=== PATIENT | male | born 1970 | race Caucasian/White ===

== ENCOUNTER 2025-01-17 22:27 | Emergency (ER) | payer BC, SELFPAY ==
[2025-01-17 22:41] VITALS: BP 129/91; PULSE 66; TEMP 36.8; O2SAT 100; BMI 28.1
--- NOTE | 2025-01-17 22:46 | PC.NURSE ---
patient complains of left thumb cut from a aging box hand, onset tonight around 7:00 pm. this patient wound clean with 0.9 ns and cover with 4x4, at this time no visible active bleeding at this time
--- NOTE | 2025-01-17 23:15 | ED_ITS ---
HPI - Wound/Laceration General Chief Complaint: Wound/Laceration Stated Complaint: laceration Time Seen by Provider: 01/17/25 22:47 Source: patient Mode of arrival: walk-in Limitations: no limitations History of Present Illness HPI narrative: This 54-year-old male who is right-hand dominant presents for evaluation of a 1.5 cm laceration to the lateral aspect of the left thumb. Around 7 PM he was cutting drywall with a box knife and the knife slipped causing him to sustain this laceration. There is no numbness or tingling. He thinks his last tetanus shot was around 2 years ago. No additional injury or complaint. The patient's states that since 7 PM they have not been able to get the bleeding to stop. Related Data Home Medications ?Medication ?Instructions ?Recorded ?Confirmed sertraline 50 mg tablet mg 01/17/25 Allergies Allergy/AdvReac Type Severity Reaction Status Date / Time No Known Drug Allergies Allergy Verified 01/17/25 22:40 Review of Systems ROS Status of ROS 10 or more systems reviewed and unremark able except as noted in history and below PFSH PFSH Social History Little interest or pleasure in doing things: not at all Feeling down, depressed, or hopeless: not at all Exam Narrative Exam Narrative: Vital signs and Nursing Notes reviewed: Patient is afebrile with a normal pulse, normal blood pressure, he is not hypoxic with pulse ox of 100% on room air General: Awake, alert, oriented, no acute distress, lying comfortably on the stretcher HEENT: Normocephalic atraumatic, mucous membranes are moist and pink, eyes are clear Chest: Lungs are clear to auscultation with good air entry, there is no wheezing rhonchi or rales appreciated no accessory muscle use, patient is speaking in complete sentences-no chest wall tenderness to palpation CVS: Regular rate and rhythm S1-S2, no murmurs rubs or gallops, pulses are brisk and equal bilaterally Extremities: 1.5 cm laceration to the lateral aspect of the left thumb between the DIP and end of the thumb. The laceration cuts thru the lateral aspect of the fingernail superficially without any notable nailbed laceration. Pt is able to flex and extend at the MCP, PIP and DIP joint. Skin: Normal in appearance without rash,pallor, petechiae or purpura Neuro: No focal deficits Constitutional Vital Signs, click to edit/add: Last Vital Signs Temp 98.3 F 01/17/25 22:41 Pulse 66 01/17/25 22:41 Resp 18 01/17/25 22:41 BP 129/91 01/17/25 22:41 Pulse Ox 100 01/17/25 22:41 O2 Del Method Room Air 01/17/25 22:41 Course Vital Signs Vital signs: Vital Signs Temperature 98.3 F 01/17/25 22:41 Pulse Rate 66 01/17/25 22:41 Respiratory Rate 18 01/17/25 22:41 Blood Pressure 129/91 01/17/25 22:41 Pulse Oximetry 100 01/17/25 22:41 Oxygen Delivery Method Room Air 01/17/25 22:41 Temperature 98.3 F 01/17/25 22:41 Pulse Rate 66 01/17/25 22:41 Respiratory Rate 18 01/17/25 22:41 Blood Pressure 129/91 01/17/25 22:41 Pulse Oximetry 100 01/17/25 22:41 Oxygen Delivery Method Room Air 01/17/25 22:41 MDM - Wound/Laceration MDM Narrative Medical decision making narrative: This 54-year-old male who is right-hand dominant presents for evaluation of a 1.5 cm laceration to the right thumb. This does minimally involve the lateral aspect of the thumbnail the thumb nail is not avulsed or otherwise injured. He states his last tetanus was around 2 years ago and declines a tetanus tonight. He is neurovascularly intact. The hand was soaked in Hibiclens and water and 5, 3-0 Ethilon sutures were placed into the laceration. Dermabond was applied over the fingernail to keep that from catching on anything. Discharge Plan Discharge Chief Complaint: Wound/Laceration Clinical Impression: Laceration of thumb with damage to nail Patient Disposition: Home, Self-Care Time of Disposition Decision: 23:50 Condition: Good Prescriptions / Home Meds: No Action sertraline 50 mg tablet Print Language: Welsh Instructions: Care For Your Stitches (ED), Finger Laceration (ED) Referrals: FRANSICO NASSAR [Primary Care Provider] - 1 week Procedures ED Procedure Instructions Procedures Procedures: Procedure note: Left thumb laceration repair; a digital block was performed with 1% lidocaine after the hand was soaked in Hibiclens and water. When anesthesia was obtained an additional small amount of lidocaine was infiltrated into the wound edges on the left thumb. 5, 3-0 Ethilon sutures were placed into the laceration with good wound edge approximation. Dermabond was applied topically on top of the nail. Patient tolerated procedure well. Suture care was discussed with the patient and his . A bacitracin dressing was applied by the nursing staff and he was discharged home.
[2025-01-18] MEDS: LIDOCAINE HCL 1% 100 MG/10 ML MDV INJ (00:17)
[2025-01-18] MEDS: BACITRACIN 0.9 GM PACKET 1 PACKET TOPICAL (00:18)
--- NOTE | 2025-01-18 00:19 | PC.NURSE ---
i gave this patient verbal and written discharge orders, and this patient voices yes to understanding these. at time of discharge this patient vices no concern and shows no signs of distress
== END 2025-01-18 00:21 | disposition home or self-care (01) ==
PROVIDERS: Emergency Provider Emergency Medicine; PCP Family Medicine
DX: S61.111A Laceration without foreign body of right thumb with damage to nail, initial encounter (principal); W26.0XXA Contact with knife, initial encounter
CPT/HCPCS: 12001; 99284

== ENCOUNTER 2025-06-29 06:33 | Outpatient (OUT) | payer BC, SELFPAY ==
--- OUTSIDE RECORDS SUMMARY | 2025-06-29 06:35 | XMS_ITS | CCD ---
Author Organization [facility] Care Team Providers Care [employer] Technician Name Role Phone REQUEST, DR QUEVEDO LISTED Consulting Unavaila ble REQUEST, DR QUEVEDO LISTED Attending Unavaila ble MADAY, DR BATEMAN Primary Care Unavailable REQUEST, DR QUEVEDO LISTED Admitting Unavaila ble RUFINA, GREGORIO Attending Unavailable ROSS, GREGORIO Admitting Unavailable MADAY, DR BATEMAN Primary Care Unavailable RUFINA, GREGORIO Consulting Unavailable HAY, DR DILLARD Admitting Unavailable MADAY, DR BATEMAN Primary Care Unavailable WEST, DR FABIOLA Hernandes Consulting Unavailable HAY, DR DILLARD Attending Unavailable HAY, DR DILLARD Consulting Unavailable JASON HERMAN Consulting Unavailable MADAY, DR BATEMAN Primary Care Unavailable WIECEK, DR ALDO Chambers Admitting Unavailable WIECEK, DR ALDO Chambers Attending Unavailable MADAY, DR BATEMAN Primary Care Unavailable WIECEK, DR ALDO Chambers Admitting Unavailable WIECEK, DR ALDO Chambers Consulting Unavailable WIECEK, DR ALDO Chambers Attending Unavailable DIONI CHANEY Consulting Unavailable MADAY, DR BATEMAN Consulting Unavailable MADAY, DR BATEMAN Attending Unavailable MADAY, DR BATEMAN Admitting Unavailable MISC, DR MORAN Consulting Unavailable Unavailable Primary Care Provider UnavailEDWIN Nevarez Attending Unavailable Jennifer Nassar MD Unavailable Jennifer Nassar MD Primary Care Provider [phone] ALEJA NICOLE Attending Unavailable Medications Current Medications Medication Drug Class(es) Dates Sig (Normalized) Sig (Original) predniSONE 20 mg oral tablet (2 sources) Start: 05-19-2024 predniSONE 20 MG tablet 3 tabs daily x 3days; 2 tabs daily x 3days; 1 tab daily x 3days then 1/2 tablet daily x 3days 20 tablet 05/19/2024 Active Start: 05-18-2024 End: 05-18-2024 take 1 dose by mouth once 60 mg, Oral, ONCE, 1 dose, O n 05/18/24 at 0745 sertraline 50 mg oral tablet (8 sources) Serotonin Reuptake Inhibitor Start: 05-13-2025 End: 06-01-2025 take 1 tablet by mouth once daily, then take 1 tablet by mouth once daily sertraline (Zoloft) 50 MG tablet Indications: Mixed anxiety and depressive disorder Take 1 tablet (50 mg) by mouth Daily TAKE 1 TABLET BY MOUTH EVERY DAY 90 tablet 3 06/01/2025 Active Start: 08-10-2024 End: 09-12-2024 take 1 tablet by mouth once daily sertraline (Zoloft) 50 MG tablet Indications: Mixed anxiety and depressive disorder TAKE 1 TABLET BY MOUTH EVERY DAY 30 tablet 09/12/2024 Active Start: 05-04-2024 take 1 tablet by claudia th once daily Sertraline 50 MG tablet TAKE 1 TABLET BY MOUTH EVERY DAY FOR 100 DAYS 05/04/2024 Active Problems Active Problems Problem Classification Problem Date Documented Date Episodic/Chronic Allergic reactions (2 sources) Contact dermatitis due to poison moi; Translations: [Allergic contact dermatitis due to plants, except food] Onset: 05-18-2024 05-18-2024 Episodic Anxiety disorders (7 sources) Mixed anxiety and depressive disorder; Translations: [Other specified anxiety disorders] Onset: 05-01-2023 09-12-2024 Chronic Diverticulosis and diverticulitis (1 source) Diverticulitis of large intestine without perforation or abscess without bleeding; Translations: [DVTRCLI LG INT NO PERF/ABSC W/O BL] Onset: 06-09-2021 Chronic Other nutritional; endocrine; and metabolic disorders (1 source) Obesity, unspecified; Translations: [OBESITY UNSPECIFIED] Onset: 08-02-2021 Chronic Other nutritional; endocrine; and metabolic disorders (1 source) Body mass index (BMI) 30.0-30.9, adult; Translations: [BODY MASS INDEX BMI 30.0-30.9 ADULT] Onset: 08-02-2021 Chronic Other nutritional; endocrine; and metabolic disorders (4 sources) Obesity caused by energy imbalance; Translations: [Class 1 obesity due to excess calories without serious comorbidity with body mass index (BMI) of 30.0 to 30.9 in adult] Onset: 06-01-2025 06-01-2025 Chronic Other screening for suspected conditions (not mental disorders or infectious disease) (4 sources) Patient encounter status; Translations: [Encounter for screening for malignant neoplasm of colon] 06-01-2025 Episodic Residual codes; unclassified (4 sources) Family history of cardiac disorder; Translations: [Family history of ischemic heart disease and other diseases of the circulatory system] Onset: 06-01-2025 06-01-2025 Episodic Unclassified (3 sources) CONTACT W/AND (SUSP) EXPOS COVID-19; Translations: [CONTACT W/AND (SUSP) EXPOS COVID-19] Onset: 03-09-2021 Past or Other Problems Problem Classification Problem Date Documented Da te Episodic/Chronic Abdominal hernia (5 sources) Incisional hernia without obstruction or gangrene; Translations: [INCI HERNIA W/O OBSTRUCTION/GANGREN ] Onset: 07-25-2021 Episodic Abdominal pain (3 sources) Unspecified abdominal pain; Translations: [UNSPECIFIED ABDOMINAL PAIN] Onset: 06-07-2021 Episodic Other aftercare (1 source) Other fdc (current) drug therapy; Translations: [OTH SNF CURRENT DRUG THERAPY] Onset: 08-02-2021 Episodic Other and unspecified benign neoplasm (1 source) Other benign neoplasm of skin of trunk; Translations: [OTHER BENIGN NEOPLASM OF SKIN TRUNK] Onset: 08-02-2021 Episodic Other circulatory disease (1 source) Other specified symptoms and signs involving the circulatory and respiratory systems; Translations: [OTH SPEC SX SIGNS INVLV CIRC RS] Onset: 03-09-2021 Episodic Other lower respiratory disease (1 source) Cough; Translations: [COUGH] Onset: 03-09-2021 Episodic Other skin disorders (1 source) Disorder of the skin and subcutaneous tissue, unspecified; Translations: [DISORDER SKIN AND SUBQ TISSUE UNS] Onset: 07-25-2021 Episodic Unclassified (1 source) CONTACT W/AND (SUSP) EXPOS COVID-19; Translations: [CONTACT W/AND (SUSP) EXPOS COVID-19] Onset: 03-06-2021 Results Test Name Value Interpretation Reference Range Facil ity AMYLASEon 06-07-2021 Amylase [Catalytic activity/Vol] 38 U/L Normal 31-110 [facility] Comment on above: Performed By: #### C MP, BASIL, LIPA #### [facility] [address] [place] [address] Tessa Aleja CBC W MANUAL DIFFon 06-07-20 21 ATYPICAL LYMPH # Normal [facility] Comment on above: Performed By: #### Katia QUINONES #### [facility] [address] [place] [address] Tessa Aleja ATYPICAL LYMPH % Normal [facility] [place] [facility] Comment on above: Performed By: #### Katia QUINONES #### [facility] [address] [place] [address] Tessa Aleja BAND # Normal 0.0-0.3 [facility] Comment on above: Performed By: #### Katia QUINONES #### [facility] [address] [place] [address] Tessa Aleja BAND % Normal 0-5 [facility] Comment on above: Performed By: #### Katia QUINONES #### [facility] [address] [place] [address] Tessa Aleja BASOM # 0.00 103/ul Normal 0.00-0.10 [facility] Comment on above: Performed By: #### Katia QUINONES #### [facility] [address] [place] [address] Tessa Aleja BASOM % 0.0 % Critically low 0.2-2.0 [facility] Comment on above: Performed By: #### Katia QUINONES #### [facility] [address] [place] [address] Tessa Aleja BLAST # Normal [facility] Comment on above: Performed By: #### Katia QUINONES #### [facility] [address] [place] [address] Tessa Aleja BLAST % Normal [facility] Comment on above: Performed By: #### Katia QUINONES #### [facility] [address] [place] [address] Tessa Aleja CORRECTED WBC Normal 4.0-11.0 [facility] Comment on above: Performed By: #### Katia QUINONES #### [facility] [address] [place] [address] Tessa Aleja EOS # 0.00 103/ul Normal 0.00-0.70 [facility] Comment on above: Performed By: #### C STACIE #### [facility] [address] [id number] Tessa Aleja EOS% 0.0 % Critically low 0.9-7.0 [facility] Comment on above: Performed By: #### C STACIE #### [facility] [address] [id number] Tessa Aleja HCT 42.8 % Normal 42.0-54.0 [facility] Comment on above: Performed By: #### C STACIE #### [facility] [address] [place] [address] Tessa Aleja HGB 14.4 g/dl Normal 14.0-18.0 [facility] Comment on above: Performed By: #### C STACIE #### [facility] [address] [place] [address] Tessa Aleja LYMPHM # 1.72 103/ul Normal 1.20-3.80 [facility] Comment on above: Performed By: #### C STACIE #### [facility] [address] [place], [place] [id number] Tessa Aleja LYMPHM% 14.0 % Critically low 20.5-60.0 [facility] Comment on above: Performed By: #### Katia QUINONES #### [facility] [address] [place] [address] Tessa Aleja MCH 30.9 pg Normal 25.9-34.0 [facility] Comment on above: Performed By: #### C STACIE #### [facility] [address] [place] [address] Tessa Aleja MCHC 33.6 g/dl Normal 29.9-35.2 [facility] Comment on above: Performed By: #### C STACIE #### [facility] [address] [place] [address] Tessa Aleja MCV 91.8 fL Normal 80.0-94.0 [facility] Comment on above: Performed By: #### Katia QUINONES #### [facility] [address] [id number] Tessa Aleja METAMYELOCYTE # Normal [facility] Comment on above: Performed By: #### Katia QUINONES #### [facility] [address] [id number] Tessa Aleja METAMYELOCYTE % Normal [facility] Comment on above: Performed By: #### Katia QUINONES #### [facility] [address] [id number] Tessa Aleja MONOM# 1.35 103/ul Critically high 0.30-0.80 [facility] Comment on above: Performed By: #### Katia QUINONES #### [facility] [address] [id number] Tessa Aleja MONOM% 11.0 % Normal 1.7-12.0 [facility] Comment on above: Performed By: #### Katia QUINONES #### [facility] [address] [place], [place] [id number] Tessa Aleja MPV 11.0 fL Normal 9.5-13.5 [facility] Comment on above: Performed By: #### Katia QUINONES #### [facility] [address] [place], [place] [id number] Tessa Aleja MYELOCYTE # Normal [facility] Comment on above: Performed By: #### Katia QUINONES #### [facility] [address] [place], [place] [id number] Tessa Aleja MYELOCYTE % Normal [facility] Comment on above: Performed By: #### Katia QUINONES #### [facility] [address] [place], [place] [id number] Tessa Aleja NRBC Normal [facility] Comment on above: Performed By: #### Katia QUINONES #### [facility] [address] [place], [place] [address] Tessa Aleja PLT 228 103/ul Normal 150-450 [facility] Comment on above: Performed By: #### Katia QUINONES #### [facility] [address] [id number] Tessa Aleja RBC 4.66 106/ul Critically low 4.70-6.10 [facility] Comment on above: Performed By: #### C BCMAN #### [facility] [address], [place] [address] Tessa Masterson RDW 12.2 % Normal 11.0-15.0 [facility] Comment on above: Performed By: #### C BCMAN #### [facility] [address], [place] [address] Tessa Masterson SEG # 9.22 103/ul Critically high 1.40-6.50 [facility] Comment on above: Performed By: #### C JEANETTEMAN #### [facility] [address], [place] [address] Tessa Masterson SEG % 75.0 % Normal 43.0-75.0 [facility] Comment on above: Performed By: #### C BCMAN #### [facility] [address], [place] [address] Tessa Masterson WBC 12.3 103/ul Critically high 4.0-11.0 [facility] Comment on above: Performed By: #### C BCJESSIKA #### [facility] [address], [place] [address] ABD/PELVIS WO CONon 06-07 CT ABD/PELVIS WO CON EXAMINATION: CT ABD/PELVIS WO CON HISTORY: Left sided abdominal pain , flank pain, nausea COMPARISON: 05/22/2017 TECHNIQUE: Axial, Coronal, and Sagittal images were created without IV contrast. Dose reduction techniques were achieved by using automated exposure control and/or adjustment of mA and/or kV according to patient size and/or use of iterative reconstruction technique. FINDINGS: LUNG BASES: No visible pulmonary or pleural disease. LIVER: Scattered subcentimeter hypodensities too small to characterize BILIARY: No dilatation or calcification. PANCREAS: No lesion, fluid collection, ductal dilatation, or atrophy. SPLEEN: No enlargement or focal lesion. ADRENALS: No mass or enlargement. KIDNEYS: No mass, obstruction, or calcification. BOWEL/MESENTERY: Concentric wall thickening of the distal descending colon with surrounding mesenteric stranding and a small amount of fluid in the left paracolic gutter. Moderate underlying colonic diverticulosis. Normal appendix. Nonobstructive bowel gas pattern. AORTA/VASCULAR: No aneurysm or dissection. RETROPERITONEUM: No mass or adenopathy. LYMPH NODES: No adenopathy. URINARY BLADDER: Thickening of the urinary bladder wall. The bladder is not completely distended PELVIC ORGANS: Mildly enlarged prostate gland ABDOMINAL WALL: No mass or hernia. BONES: No bony lesion or fracture. OTHER: Negative. IMPRESSION: Acute distal descending colon diverticulitis with no focal abscess Electronically authenticated by: FABIOLA GORDON Date: 2021-06-07 07:08 Normal [facility] ER URINE PROFILEon 1 Bilirubin Ql (U) Negative Normal NEGATIVE [facility] [place] [facility] Comment on above: Performed By: #### U MICRO, ERUR #### [facility] [address] [place] [address] Tessa Aleja Clarity (U) CLEAR Normal CLEAR [facility] Comment on above: Performed By: #### U MICRO, ERUR #### [facility] [address] [place] [address] Tessa Aleja Color (U) LT. YELLOW Normal YELLOW [facility] Comment on above: Performed By: #### U MICRO, ERUR #### [facility] [address] [place] [address] Tessa Aleja ERUAHD A micrscopic examination will be performed if indicated. Normal [facility] Comment on above: Performed By: #### U MICRO, ERUR #### [facility] [address] [place] [address] Tessa Aleja Glucose Ql (U) Negative Normal NEGATIVE [facility] Comment on above: Performed By: #### U MICRO, ERUR #### [facility] [address] [place] [address] Tessa Aleja Hemoglobin Ql (U) TRACE-INTACT Abnormal NEGATIVE [facility] Comment on above: Performed By: #### U MICRO, ERUR #### [facility] [address] [place] [address] Tessa Aleja Ketones Ql (U) Negative Normal NEGATIVE [facility] Comment on above: Performed By: #### U MICRO, ERUR #### [facility] [address] [place] [address] Tessa Aleja LEUKOCYTES Negative Normal NEGATIVE [facility] Comment on above: Performed By: #### U MICRO, ERUR #### [facility] [address] [place] [address] Tessa Aleja Nitrite Ql (U) Negative Normal NEGATIVE [facility] Comment on above: Performed By: #### U MICRO, ERUR #### [facility] [address] [place] [address] Tessa Aleja pH (U) 6.0 [pH] Normal 5-9 [facility] Comment on above: Performed By: #### U MICRO, ERUR #### [facility] [address] [place] [address] Tessa Aleja SPEC GRAVITY 1.025 Normal 1.005-<=1.[address] [facility] Comment on above: Performed By: #### U MICRO, ERUR #### [facility] [address] [place] [address] Tessa Aleja UA PROTEIN Negative Normal NEGATIVE/ TRACE [facility] Comment on above: Performed By: #### U MICRO, ERUR #### [facility] [address] [place] [address] Tessa Toledoen UR MICRO IND INDICATED Normal [facility] Comment on above: Performed By: #### U MICRO, ERUR #### [facility] [address] [place] [address] Tessatierra Masterson Urobilinogen Qn (U) 0.2 {Daniel'U}/dL Normal 0.2 - 1. 0 [facility] Comment on above: Performed By: #### U MICRO, ERUR #### [facility] [address] [place] [address] Tessa Aleja LACTATE/LACTIC ACIDon 2020 Lactate [Moles/Vol] 0.8 mmol/L Normal 0.7-2.0 [facility] Comment on above: Performed By: #### L ACT #### [facility] [address] [place] [address] Tessa Aleja LIPASEon 06-07-2021 Lipase [Catalytic activity/Vol] 148.0 U/L Normal 23.0-300.0 [facility] Comment on above: Performed By: #### C BASIL BOOKER LIPA #### [facility] [address] [address] Tessatierra Masterson PROF 14(COMP METB)on 021 Albumin [Mass/Vol] 4.1 g/dL Normal 3.5-5.0 [facility] Comment on above: Performed By: #### C BASIL BOOKER LIPA #### [facility] [address] [address] Tessa Aleja Albumin/Globulin [Mass ratio] 1.1 {ratio} Normal [facility] Comment on above: Performed By: #### C BASIL BOOKER LIPA #### [facility] [address] [place] [address] Tessa Aleja ALP [Catalytic activity/Vol] 84 U/L Normal 38-126 [facility] Comment on above: Performed By: #### C BASIL BOOKER LIPA #### [facility] [address] [place] [address] Tessa Aleja ALT [Catalytic activity/Vol] 20 U/L Critically low 21-72 [facility] Comment on above: Performed By: #### C BASIL BOOKER LIPA #### [facility] [address] [place] [address] Tessa Aleja Anion gap [Moles/Vol] 14.2 mmol/L Normal [facility] Comment on above: Performed By: #### C BASIL BOOKER, LIPA #### [facility] [address] [place] [address] Tessa Aleja AST [Catalytic activity/Vol] 15 U/L Critically low 17-59 [facility] Comment on above: Performed By: #### C BASIL BOOKER LIPA #### [facility] [address] [place] [address] Tessa Aleja Bilirubin [Mass/Vol] 1.2 mg/dL Normal 0.2-1.3 [facility] Comment on above: Performed By: #### C BASIL BOOKER LIPA #### [facility] [address] [place] [address] Tessa Aleja Calcium [Mass/Vol] 8.8 mg/dL Normal 8.4-10.2 [facility] Comment on above: Performed By: #### C BASIL BOOKER LIPA #### [facility] [address] [address] Tessa Aleja Chloride [Moles/Vol] 102 mmol/L Normal 98-107 [facility] Comment on above: Performed By: #### C BASIL BOOKER LIPA #### [facility] [address] [place] [address] Tessa Aleja CO2 [Moles/Vol] 28.4 mmol/L Normal 22.0-30.0 [facility] [place] [facility] Comment on above: Performed By: #### C BASIL BOOKER LIPA #### [facility] [address] [place] [address] Tessa Aleja Creatinine [Mass/Vol] 1.26 mg/dL Critically high 0.66-1.25 [facility] Comment on above: Performed By: #### C BASIL BOOKER LIPA #### [facility] [address] [place] [address] Tessa Aleja EGFR-AF NEPALESE >60 Normal >=60 [facility] [place] [facility] Comment on above: Performed By: #### C BASIL BOOKER LIPA #### [facility] [address] [place] [address] Tessa Aleja EGFR-NON AF NEPALESE =60 Normal >=60 [facility] Comment on above: Performed By: #### C BASIL BOOKER LIPA #### [facility] [address] [place] [address] Tessa Aleja Globulin (S) [Mass/Vol] 3.7 g/dL Normal [facility] Comment on above: Performed By: #### C BASIL BOOKER LIPA #### [facility] [address] [place] [address] Tessa Aleja Glucose [Mass/Vol] 104 mg/dL Normal 74-106 [facility] Comment on above: Performed By: #### C BASIL BOOKER LIPA #### [facility] [address] [place] [address] Tessa Aleja Potassium [Moles/Vol] 4.6 mmol/L Normal 3.4-5.0 [facility] Comment on above: Performed By: #### C BASIL BOOKER LIPA #### [facility] [address] [place] [address] Tessa Aleja Protein [Mass/Vol] 7.8 g/dL Normal 6.1-8.2 [facility] Comment on above: Performed By: #### C BASIL BOOKER LIPA #### [facility] [address] [place] [address] Tessa Aleja Sodium [Moles/Vol] 140 mmol/L Normal 137-145 [facility] Comment on above: Performed By: #### C BASIL BOOKER LIPA #### [facility] [address] [place] [address] Tessa Aleja Urea nitrogen [Mass/Vol] 15.0 mg/dL Normal 9.0-20.0 [facility] Comment on above: Performed By: #### C BASIL BOOKER LIPA #### [facility] [address] [place] [address] Tessa Aleja Urea nitrogen/Creatinine [Mass ratio] 11.9 mg/mg Normal [facility] Comment on above: Performed By: #### C BASIL BOOKER LIPA #### [facility] [address] [place] [address] Tessa Aleja URINE MICROSCOPIC ONLYon BACTERIA NONE SEEN Normal NONE SEEN [facility] Comment on above: Performed By: #### U MICRO, ERUR #### [facility] [address] [place] [address] Tessa Aleja Bacteria identified Cx Nom (U) NOT INDICATED Normal [facility] Comment on above: Performed By: #### U MICRO, ERUR #### [facility] [address] [place] [address] Tessa Aleja CAST NONE SEEN Normal NONE SEEN [facility] Comment on above: Performed By: #### U MICRO, ERUR #### [facility] [address] [place] [address] Tessa Masterson Crystals LM Nom (Urine sed) NONE SEEN Normal NONE SEEN [facility] Comment on above: Performed By: #### U MICRO, ERUR #### [facility] [address] [place] [address] Tessa Masterson Epithelial cells LM Ql (Urine sed) RARE Normal NONE SEEN /RARE [facility] Comment on above: Performed By: #### U MICRO, ERUR #### [facility] [address] [place] [address] Tessa Aleja MUCOUS NONE SEEN Normal NONE SEEN [facility] Comment on above: Performed By: #### U MICRO, ERUR #### [facility] [address] [place] [address] Tessa Aleja RBC 0-2 Normal 0-2 [facility] Comment on above: Performed By: #### U MICRO, ERUR #### [facility] [address] [place] [address] Tessatierra Masterson WBC NONE SEEN Normal NONE SEEN [facility] Comment on above: Performed By: #### U MICRO, ERUR #### [facility] [address] [place] [address] Tessa Masterson Covid-19 PCR ([facility])on SARS-CoV-2 (COVID-19) RNA DWAIN+probe Ql (Unsp spec) Not detected Normal NOT DETECTED [facility] Comment on above: Result Comment: This test is not yet approved or cleared by the [place] FDA. When there are no FDA-approved or cleared tests available, and other criteria are met, FDA can make tests available under an emergency access mechanism called an Emergency Use Authorization (EUA). The EUA for this test is supported by the [employer] Health and Human Service's (HHS's) declaration that circumstances exist to justify the emergency use of in vitro diagnostics for the detection and/or diagnosis of the virus that causes COVID-19. This EUA will remain in effect (meaning this test can be used) for the duration of the COVID-19 declaration justifying emergency of IVDs, unless it is terminated or revoked by FDA (after which the test may no longer be used). When diagnostic testing is negative, the possibility of a false negative should be considered in the context of a patient's recent exposures and the presence of clinical signs and symptoms consistent with SARS-CoV-2. Performed By: #### C [facility] #### [facility] [address] [place], [place] [id number] Tessa Masterson Vital Signs Date Time Vital Sign Value Performing Clinician Facility 06-01-2025 16:33-0400 Body height 190.5 cm Aleja Hemmer PA Work Phone: [facility] 06-01-2025 16:33-0400 Body mass index (BMI) [Ratio] 30.62 kg/m2 Aleja Hemmer PA Work Phone: [facility] 06-01-2025 16:33-0400 Body weight 111.13 kg Aleja Hemmer PA Work Phone: [facility] 06-01-2025 16:33-0400 Diastolic blood pressure 84 mm[Hg] Aleja Hemmer PA Work Phone: [facility] 06-01-2025 16:33-0400 Heart rate 93 /min Aleja Hemmer PA Work Phone: [facility] 06-01-2025 16:33-0400 Respiratory rate 16 /min Aleja Hemmer PA Work Phone: [facility] 06-01-2025 16:33-0400 SaO2% (BldA) [Mass fraction] 96 % Aleja Hemmer PA Work Phone: [facility] 06-01-2025 16:33-0400 Systolic blood pressure 108 mm[Hg] Aleja Hemmer PA Work Phone: [facility] 05-18-2024 07:26-0400 Body temperature 96.6 [degF] Edwin Boland MD Work Phone: [facility] 05-18-2024 07:26-0400 Diastolic blood pressure 82 mm[Hg] Edwin Boland MD Work Phone: [facility] 05-18-2024 07:26-0400 Heart rate 61 /min Edwin Boland MD Work Phone: [facility] 05-18-2024 07:26-0400 Respiratory rate 16 /min Edwin Boland MD Work Phone: [facility] 05-18-2024 07:26-0400 SaO2% (BldA) [Mass fraction] 96 % Edwin Boland MD Work Phone: [facility] 05-18-2024 07:26-0400 Systolic blood pressure 130 mm[Hg] Edwin Boland MD Work Phone: [facility] 05-18-2024 07:25-0400 Body height 190.5 cm Edwin Boland MD Work Phone: [facility] Encounters Encounter Date Encounter Type Care Provider Facility Start: 06-01-2025 End: 06-01-2025 Patient encounter status Aleja PRABHAKAR Work Phone: [facility] Work Phone: Start: 06-01-2025 End: 06-01-2025 Periodic preventive med est patient 40-64yrs Aleja Nicole PA Work Phone: [facility] Comment on above: Wellness examination (Primary Dx); Screening for malignant neoplasm of colon; Class 1 obesity due to excess calories without serious comorbidity with body mass index (BMI) of 30.0 to 30.9 in adult; Mixed anxiety and depressive disorder; Screening for malignant neoplasm of prostate; Family history of heart disease Start: 06-01-2025 End: 06-01-2025 ambulatory ALEJA NICOLE Not Available Start: 06-01-2025 End: 06-01-2025 Bamboo flowsheet Aleja Nicole PA Work Phone: [facility] Start: 06-01-2025 End: 06-01-2025 Bamboo flowsheet Aleja Nicole PA Work Phone: [facility] Start: 09-12-2024 End: 09-14-2024 Refill Jennifer Nassar MD Work Phone: [facility] Comment on above: Mixed anxiety and de pressive disorder Start: 05-18-2024 End: 05-18-2024 Emergency department patient visit Edwin Boland MD Work Phone: [facility] Start: 11-21-2021 End: 11-22-2021 ambulatory GREGORIO ALMARAZ Facility:[facility] Start: 07-28-2021 End: 07-28-[address] JENNIFER NASSAR Facility:[facility] Start: 07-25-2021 Encounter for other preprocedural examination DR ALDO CUI [facility] Start: 07-12-2021 End: 07-13-[address] JENNIFER NASSAR Facility:[facility] Start: 07-12-2021 End: 07-13-2021 Encounter for other preprocedural examination DR JENNIFER NASSAR Facility:[facility] Start: 06-07-2021 End: 06-07-[address] GILMA MITCHELL Facility:[facility] Start: 03-06-2021 End: 03-06-[address] JENNIFER NASSAR Facility:[facility] Start: 02-17-2021 End: 07-07-[address] QUEVEDO LISTED REQUEST Facility: Plan of Treatment Date Care Activity Detail Author Start: 08-02-2025 Influenza vaccination Influenza Vacc ine (#1) [facility] Start: 06-01-2025 End: 06-01-2025 Patient encounter procedure 06/01/2025 4:30 PM EDT Office Visit [facility] [address] [facility] [address] [place] [id number] Aleja Nicole PA [address] [facility] [address] [place] [address] Arrived [facility] Comment on above: Arrived Start: 06-01-2025 End: 06-01-2026 Noninvasive colorectal cancer DNA and occult blood screening [Presence] in Stool Cologuard colon cancer screening Lab Routine Screening for malignant neoplasm of colon Expected: 06/01/2025 (Approximate), Expires: 06/01/2026 [facility] Work Phone: Comment on above: Expected: 06/01/2025 (Approximate), Expires: 06/01/2026 Start: 09-24-2024 End: 09-24-2024 Patient encounter procedure 09/24/2024 4:30 PM EDT Office Visit [facility] [address] [facility] [address] [place] [id number] Marilyn Austin, HOUSEKEEPER/CUSTODIAN/LAUNDRY WORKER [address] [facility] [address] [place] [address] [facility] Start: 08-02-2024 Influenza vaccination [facility] Start: 02-04-2024 Screening for malign ant neoplasm of colon [facility] Start: 08-02-2023 COVID-19 VACCINE () COVID-19 VACCINE () [facility] Start: 09-12-2022 Zoster vaccine hzv l janel for subcutaneous use ZOSTER (SHINGLES) VACCINE (2 of 2) [facility] Start: 02-03-2022 Screening for malign ant neoplasm of colon COLORECTAL CANCER SCREENING DISCUSSION [facility] Start: 2019 Prostate specific antigen measurement PROSTATE CANCER SCREENING DISCUSSION [facility] Start: 2009 Lipid panel LIPID SCREENING [facility] Start: 1988 Hepatitis B vaccination HEP B VACCINE (1 of + 3-dose series) [facility] Start: 1988 Third diphtheria, tetanus and acellular pertussis (DTaP) vaccination TDAP (ADULT) [facility] Start: 1984 HIV screening HIV SCREENING DISCUSSION [facility] Start: 1969 Hepatitis C screening HEPATITI S C VIRUS SCREENING [facility] Start: 1969 Screening for malign ant neoplasm of colon [facility] Start: 1969 Tetanus vaccination [facility] CBC W Auto Different ial panel - Blood CBC and differential Lab Routine Wellness examination Class 1 obesity due to excess calories without serious comorbidity with body mass index (BMI) of 30.0 to 30.9 in adult Family history of heart disease Ordered: 06/01/2025 [facility] Comment on above: Ordered: 06/01/2025 Comprehensive metabo lic 2000 panel - Serum or Plasma Comprehensive metabolic panel Lab Routine Wellness examination Class 1 obesity due to excess calories without serious comorbidity with body mass index (BMI) of 30.0 to 30.9 in adult Family history of heart disease Ordered: 06/01/2025 [facility] Comment on above: Ordered: 06/01/2025 Lipid 1996 panel - S airam or Plasma Lipid panel Lab Routine Wellness examination Class 1 obesity due to excess calories without serious comorbidity with body mass index (BMI) of 30.0 to 30.9 in adult Family history of heart disease Ordered: 06/01/2025 [facility] Comment on above: Ordered: 06/01/2025 Prostate specific Ag [Mass/volume] in Serum or Plasma PSA Lab Routine Wellness examination Screening for malignant neoplasm of prostate Ordered: 06/01/2025 [facility] Comment on above: Ordered: 06/01/2025 Immunizations Immunization Date Immunization Notes Care Provider [facility] 09-18-2022 influenza, injectabl e, quadrivalent, preservative free Jennifer Nassar MD Work Phone: [facility] 09-18-2022 influenza virus vaccine, unspecified formulation Edwin Boland MD Work Phone: [facility] Work Phone: 07-18-2022 zoster vaccine recombinant Jennifer Nassar MD Work Phone: [facility] 07-18-2022 zoster vaccine, unspecified formulation Edwin Boland MD Work Phone: [facility] Work Phone: 09-01-2020 Influenza, injectabl e, Madin [place] Canine Kidney, preservative free, quadrivalent Jennifer Nassar MD Work Phone: [facility] Payers Date Payer Category [facility] [id number] 2019 Unknown [employer]I [employer] PPO POS [id number] 2019-Present [address] [place] [address] [id number] 1969 Unknown [id number] 1969 Unknown [id number] 1969 Unknown [id number] 1969 Unknown [id number] 1969 Unknown [id number] 1969 Unknown [id number] 1959 Self-pay 1959 Unknown [id number] Unknown [id number] Unknown [id number] Social History Date Type Detail Facility [facility] consumption unknown [facility] Work Phone: Start: 03-18-2015 End: 06-01-2025 History of Social function [facility] Work Phone: Start: 03-18-2015 End: 06-01-2025 Tobacco use panel [facility] Work Phone: Start: 1970 Sex assigned at Not on file [facility] Work Phone: Start: 05-02-2023 [facility] Never smoked tobacco [facility] Start: 05-02-2023 Tobacco use and exposure Smokeless tobacco non-user [facility] Start: 02-22-2024 End: 06-01-2025 Alcoholic beverage intake Ex-drinker (finding) [facility] Functional Status Date Assessment Result Facility 06-01-2025 Patient Health Quest ionnaire 2 item (PHQ-2) [Reported] [facility] Clinical Notes 07-28-2021 to 06-01-2025 AKI Huerta - 06/01/2025 4:30 PM EDTTelephone Encounter - Nida Fontaine - 09/14/2024 11:16 AM EDTTelephone Encounter - AKI Huerta - 09/12/2024 9:04 AM EDT Note Date & Type Note Facility 06-01-2025 History of Presen t illness Narrative Images from the original note were not included. HPI Med Refill Additional comments: Sertraline Last edited by Jeniffer Montes LPN on 06/01/2025 4:27 PM. Subjective Patient ID: Aldo Azevedo is a 54 y.o. male who presents for wellness. Subjective Aldo Azevedo is a 54 y.o. male and is here for a comprehensive physical exam. The patient reports no problems but mother did have a heart attack in January and does have a family history of heart disease so would like to get some testing done for that. States he gets about 5 hours of sleep at night, has been like that for a long time. Does feel rested when he wakes up. Over the past 2 weeks, how often have you been bothered by any of the following problems? Little interest or pleasure in doing things: Not at all (currently on medication) Feeling down, depressed, or hopeless: Not at all (currently on medication) Patient Health Questionnaire-2 Score: 0 Current Outpatient Medications on File Prior to Visit Medication Sig Dispense Refill [DISCONTINUED] sertraline (Zoloft) 50 MG tablet TAKE 1 TABLET BY MOUTH EVERY DAY 7 tablet 0 No current facility-administered medications on file prior to visit. I have reviewed and reconciled the history and medication list with the patient today. No Known Allergies Social History Tobacco Use Smoking status: Never Smokeless tobacco: Never Vaping Use Vaping status: Never Used Substance Use Topics Alcohol use: Not Currently Drug use: Never Family History Problem Relation Name Age of Onset Hypertension Mother Heart attack Mother Lung cancer Father Past Medical History: Diagnosis Date Depression Past Surgical History: Procedure Laterality Date APPENDECTOMY 2017 OTHER SURGICAL HISTORY 07/2021 Laparoscopic repair of recurrent incisional ventral hernia with mesh-Wiecek SKIN EXCISION 07/2021 Excision skin lesion-back/Wiecek (benign) VENTRAL HERNIA REPAIR 07/2018 [place] Visit Vitals BP 108/84 Pulse 93 Resp 16 Ht 6' 3 Wt 245 lb SpO2 96% BMI 30.62 kg/m Smoking Status Never BSA 2.42 m Review of Systems Constitutional: Negative for chills, fatigue and fever. HENT: Negative for congestion, ear pain, rhinorrhea, sinus pressure and sore throat. Eyes: Negative for pain, discharge and redness. Respiratory: Negative for cough, shortness of breath and wheezing. Cardiovascular: Negative for chest pain, palpitations and leg swelling. Gastrointestinal: Negative for abdominal pain, constipation, diarrhea, nausea and vomiting. Genitourinary: Negative for dysuria, frequency and urgency. Musculoskeletal: Negative for arthralgias and back pain. Skin: Negative for rash. Neurological: Negative for dizziness, numbness and headaches. Psychiatric/Behavioral: Negative for confusion, dysphoric mood and sleep disturbance. Objective Physical Exam Constitutional: General: He is not in acute distress. Appearance: He is obese. HENT: Head: Normocephalic and atraumatic. Right Ear: Tympanic membrane and ear canal normal. Left Ear: Tympanic membrane and ear canal normal. Nose: Nose normal. Mouth/Throat: Mouth: Mucous membranes are moist. Pharynx: Oropharynx is clear. Eyes: General: No scleral icterus. Extraocular Movements: Extraocular movements intact. Conjunctiva/sclera: Conjunctivae normal. Pupils: Pupils are equal, round, and reactive to light. Cardiovascular: Rate and Rhythm: Normal rate and regular rhythm. Pulses: Normal pulses. Pulmonary: Effort: Pulmonary effort is normal. Breath sounds: Normal breath sounds. No wheezing, rhonchi or rales. Abdominal: General: Bowel sounds are normal. There is no distension. Palpations: Abdomen is soft. Tenderness: There is no abdominal tenderness. There is no guarding. Musculoskeletal: General: No swelling, tenderness, deformity or signs of injury. Normal range of motion. Cervical back: Normal range of motion. No tenderness. Lymphadenopathy: Cervical: No cervical adenopathy. Skin: General: Skin is warm and dry. Findings: No erythema. Neurological: General: No focal deficit present. Mental Status: He is alert and oriented to person, place, and time. Cranial Nerves: No cranial nerve deficit. Sensory: No sensory deficit. Motor: No weakness. Coordination: Coordination normal. Gait: Gait normal. Psychiatric: Mood and Affect: Mood normal. Behavior: Behavior normal. Thought Content: Thought content normal. Judgment: Judgment normal. Assessment/Plan Diagnoses and all orders for this visit: Wellness examination - CBC and differential - Comprehensive metabolic panel - Lipid panel - PSA Wellness form reviewed in detail with the patient. Encouraged patient to stay up to date on immunizations and preventative testing. Encouraged healthy diet, stay active. Will continue with yearly wellness exams. Screening for malignant neoplasm of colon - Cologuard colon cancer screening; Future Provided patient with order to complete Cologuard testing as a screening for colon cancer. If results are negative, will plan to recheck a Cologuard in 3 years. If results are positive, would need to provide patient with referral for a screening Colonoscopy for further evaluation. Class 1 obesity due to excess calories without serious comorbidity with body mass index (BMI) of 30.0 to 30.9 in adult - CBC and differential - Comprehensive metabolic panel - Lipid panel Encouraged portion control, decrease simple sugars and carbohydrates, gradually increase activity level. Aim for gradual steady weight loss. Mixed anxiety and depressive disorder - sertraline (Zoloft) 50 MG tablet; Take 1 tablet (50 mg) by mouth Daily TAKE 1 TABLET BY MOUTH EVERY DAY Refill provided on the above. Stable on current dosage. Screening for malignant neoplasm of prostate - PSA Will check PSA with upcoming labs. Will notify pt of the results once received. Family history of heart disease - CBC and differential - Comprehensive metabolic panel - Lipid panel Discussed healthy lifestyle. Reviewed limit sodium in diet, avoid fried foods, and avoid fast foods. Encouraged some form of routine cardio exercise. Will continue to work on minimizing risk factors. Can consider low dose aspirin in the future, did discuss potential risks and benefits of aspirin. Follow up in about 1 year (around 06/01/2026) for Wellness. documented in this encounter [facility] 09-14-2024 Miscellaneous Notes scheduled Pt has not been seen in office in over a year. Please help him get set up with Dr. Nassar for a Wellness within the next month. documented in this encounter [facility] 09-14-2024 Telephone encounter Note scheduled [facility] 09-12-2024 Telephone encounter Note Pt has not been seen in office in over a year. Please help him get set up with Dr. Nassar for a Wellness within the next month. [facility] 05-18-2024 Physician Emergency department Note EMERGENCY DEPARTMENT ENCOUNTER CHIEF COMPLAINT Poison Moi/Poison [place]/Poison [place] Exposure (Poison moi to bilat eyes. Swelling and itching to site) Note to patient: The Century Cures Act requires that medical notes like this one to be available to patients in the interest of transparency. Please be advised, this is a medical document. It is intended as [id number]-mtwh communication. It is written in medical language and may contain abbreviations or verbiage that may be unfamiliar. It may appear or read as blunt or direct. Medical documents are intended to carry relevant medical information, facts as evident and the clinical opinion of the practitioner. If you have questions about what any of the documentation means, please let your care team know. HPI Aldo Azevedo is a 53 y.o. male presents with a pruritic rash to his face after exposure to poison moi. No other complaints. REVIEW OF SYSTEMS ROS See also HPI PAST MEDICAL HISTORY Past Medical History: Diagnosis Date Anxiety SURGICAL HISTORY Past Surgical History: Procedure Laterality Date APPENDECTOMY HERNIA REPAIR CURRENT MEDICATIONS Current Outpatient Medications Medication Sig Sertraline 50 MG tablet TAKE 1 TABLET BY MOUTH EVERY DAY FOR 100 DAYS [START ON 05/19/2024] predniSONE 20 MG tablet 3 tabs daily x 3days; 2 tabs daily x 3days; 1 tab daily x 3days then 1/2 tablet daily x 3days ALLERGIES No Known Allergies Family history reviewed and noncontributory other than: No family history on file. Social history reviewed and noncontributory other than: Social History Socioeconomic History Marital status: Spouse name: Not on file Number of children: Not on file Years of education: Not on file Highest education level: Not on file Occupational History Not on file Tobacco Use Smoking status: Not on file Smokeless tobacco: Not on file Substance and Sexual Activity Alcohol use: Not on file Drug use: Not on file Sexual activity: Not on file Other Topics Concern Not on file Social History Narrative Not on file Social Determinants of Health Financial Resource Strain: Not on file Food Insecurity: Not on file Transportation Needs: Not on file Physical Activity: Not on file Stress: Not on file Social Connections: Not on file Intimate Partner Violence: Not on file Housing Stability: Not on file PHYSICAL EXAM VITAL SIGNS: BP 130/82 Pulse 61 Temp 96.6 F (35.9 C) Resp 16 Ht 1.905 m (6' 3 ) SpO2 96% Physical Exam Physical Exam CONSTITUTIONAL: Well appearing and well nourished EYES: No injection, no icterus, PERRLA, EOMI. HENT: External ears appear normal, external nose normal, head atraumatic. Moist mucous membranes RESPIRATORY: Normal chest excursion with respiration, no stridor CARDIOVASCULAR: no cyanosis GASTROINTESTINAL: abdomen soft, nondistended, nontender NEUROLOGICAL: Awake, alert, oriented. No focal deficits. INTEGUMENTARY: warm and dry, erythematous rash with mild swelling to the right cheek and periorbital region and some of the left cheek. MUSCULOSKELETAL: No deformities ED COURSE & MEDICAL DECISION MAKING The final diagnosis does not in itself determine the complexity or risk as extensive evaluation may be required to reach the conclusion that the signs or symptoms do not represent a highly morbid condition. In addition, multiple problems of the lower severity may, in the aggregate, create high risk due to interaction. Patient was evaluated in the emergency department for the symptoms described in the HPI. LABS: No results found for this visit on 05/18/24. Radiology: No orders to display MDM: Patient presents with contact dermatitis likely related to poison moi, given a prescription for prednisone, can use Benadryl as needed. Medical Decision Making Risk Prescription drug management. There is no height or weight on file to calculate BMI. SOCIAL DETERMINANTS OF HEALTH PATIENT STATUS: New Visit REASON: Has Financial Hardship: No Has Food Insecurity: No Lacks access to Transportation: No Health Care Literacy {Normal SDH_RECOMMENDATIONS: none Impression - ICD-10-CM 1. Contact dermatitis due to poison moi L23.7 Dispo: dc Please note that this chart has been created with the assistance of voice recognition software, which may contain errors in punctuation, grammar, or usage. Please contact the dictating physician for any questions. Edwin Boland MD 05/18/24 0735 [facility] Work Phone: 05-18-2024 Emergency department Note EMERGENCY DEPARTMENT ENCOUNTER CHIEF COMPLAINT Poison Moi/Poison [place]/Poison [place] Exposure (Poison moi to bilat eyes. Swelling and itching to site) Note to patient: The 21st Century Cures Act requires that medical notes like this one to be available to patients in the interest of transparency. Please be advised, this is a medical document. It is intended as zygx-yg-[id number] communication. It is written in medical language and may contain abbreviations or verbiage that may be unfamiliar. It may appear or read as blunt or direct. Medical documents are intended to carry relevant medical information, facts as evident and the clinical opinion of the practitioner. If you have questions about what any of the documentation means, please let your care team know. HPI Aldo Azevedo is a 53 y.o. male presents with a pruritic rash to his face after exposure to poison moi. No other complaints. REVIEW OF SYSTEMS ROS See also HPI PAST MEDICAL HISTORY Past Medical History: Diagnosis Date Anxiety SURGICAL HISTORY Past Surgical History: Procedure Laterality Date APPENDECTOMY HERNIA REPAIR CURRENT MEDICATIONS Current Outpatient Medications Medication Sig Sertraline 50 MG tablet TAKE 1 TABLET BY MOUTH EVERY DAY FOR 100 DAYS [START ON 05/19/2024] predniSONE 20 MG tablet 3 tabs daily x 3days; 2 tabs daily x 3days; 1 tab daily x 3days then 1/2 tablet daily x 3days ALLERGIES No Known Allergies Family history reviewed and noncontributory other than: No family history on file. Social history reviewed and noncontributory other than: Social History Socioeconomic History Marital status: Spouse name: Not on file Number of children: Not on file Years of education: Not on file Highest education level: Not on file Occupational History Not on file Tobacco Use Smoking status: Not on file Smokeless tobacco: Not on file Substance and Sexual Activity Alcohol use: Not on file Drug use: Not on file Sexual activity: Not on file Other Topics Concern Not on file Social History Narrative Not on file Social Determinants of Health Financial Resource Strain: Not on file Food Insecurity: Not on file Transportation Needs: Not on file Physical Activity: Not on file Stress: Not on file Social Connections: Not on file Intimate Partner Violence: Not on file Housing Stability: Not on file PHYSICAL EXAM VITAL SIGNS: BP 130/82 Pulse 61 Temp 96.6 F (35.9 C) Resp 16 Ht 1.905 m (6' 3 ) SpO2 96% Physical Exam Physical Exam CONSTITUTIONAL: Well appearing and well nourished EYES: No injection, no icterus, PERRLA, EOMI. HENT: External ears appear normal, external nose normal, head atraumatic. Moist mucous membranes RESPIRATORY: Normal chest excursion with respiration, no stridor CARDIOVASCULAR: no cyanosis GASTROINTESTINAL: abdomen soft, nondistended, nontender NEUROLOGICAL: Awake, alert, oriented. No focal deficits. INTEGUMENTARY: warm and dry, erythematous rash with mild swelling to the right cheek and periorbital region and some of the left cheek. MUSCULOSKELETAL: No deformities ED COURSE & MEDICAL DECISION MAKING The final diagnosis does not in itself determine the complexity or risk as extensive evaluation may be required to reach the conclusion that the signs or symptoms do not represent a highly morbid condition. In addition, multiple problems of the lower severity may, in the aggregate, create high risk due to interaction. Patient was evaluated in the emergency department for the symptoms described in the HPI. LABS: No results found for this visit on 05/18/24. Radiology: No orders to display MDM: Patient presents with contact dermatitis likely related to poison moi, given a prescription for prednisone, can use Benadryl as needed. Medical Decision Making Risk Prescription drug management. There is no height or weight on file to calculate BMI. SOCIAL DETERMINANTS OF HEALTH PATIENT STATUS: New Visit REASON: Has Financial Hardship: No Has Food Insecurity: No Lacks access to Transportation: No Health Care Literacy {Normal SDH_RECOMMENDATIONS: none Impression - ICD-10-CM 1. Contact dermatitis due to poison moi L23.7 Dispo: dc Please note that this chart has been created with the assistance of voice recognition software, which may contain errors in punctuation, grammar, or usage. Please contact the dictating physician for any questions. Edwin Boland MD 05/18/24 0735 documented in this encounter [facility] Work Phone: 07-28-2021 Note OPERATIVE NOTE OPERATION DATE: 07/28/2021 PREOPERATIVE DIAGNOSES: 1. Recurrent incisional ventral hernia of the right lower quadrant. 2. Skin lesion of his back 8 mm in diameter. POSTOPERATIVE DIAGNOSES: 1. Recurrent incisional ventral hernia of the right lower quadrant with pathology pending. 2. Skin lesion of his back 8 mm in diameter with pathology pending. PROCEDURES PERFORMED: 1. Laparoscopic recurrent incisional ventral hernia repair with mesh. 2. Excision of back skin lesion 8 mm in diameter. SURGEON: Aldo Cui MD GOLD LAYER: NE Brian. ANESTHESIA: General, 0.5% Marcaine for local. ESTIMATED BLOOD LOSS: Minimal. SPECIMENS: Hernia sac and excised skin lesion. DISPOSITION: Patient was extubated in the Operating Room and taken to the PACU in fair condition. PROCEDURE: Patient was brought into the Operating Room and placed supine on the operating table. After establishment of general endotracheal anesthesia, the patient's abdomen was shaved with clippers and prepped and draped in a sterile fashion. A left middle quadrant incision was made approximately 2 cm in length. The incision was carried down through the skin using sharp dissection through the soft tissue using electrocautery Bovie until reaching the anterior rectus fascia. The fascia was scored using electrocautery Bovie, grasped with Sandra clamps and elevated. 0 Vicryl stay sutures were placed. Using blunt dissection, the posterior sheath was grasped with hemostats and elevated and incised with a scalpel. A 12 mm Nellie balloon port was placed into the abdominal cavity. The balloon was insufflated with air. The abdominal cavity was insufflated with CO2 gas. Under direct laparoscopic visualization, a 5 mm port was placed in the right upper quadrant and another 5 mm port was placed in the epigastric area in the midline. The patient was then placed in the tilted to the right position. The patient had a hernia sac in the right lower quadrant that was excised using the LigaSure device. A round mesh graft with Echo Positioning system was placed into the abdominal cavity. A small sluma in the skin was made using an #11 blade near the upper portion of the hernia defect. A Kelvin needle was inserted into the abdominal cavity and the mesh insufflating tube was brought out through the abdominal wall and cut and connected to the syringe and the balloon on the mesh was insufflated. The mesh was then tacked to the abdominal wall using SecureStrap. The insufflating tubing was cut and the balloon was removed from the abdominal cavity. The epigastric ports were removed. There was no evidence of any bleeding. The left middle quadrant port was removed and the fascia was reapproximated using the previously placed stay sutures. All the wounds were anesthetized with 0.5% Marcaine. The skin was reapproximated using 4-0 Monocryl in a subcuticular fashion. The incisions were cleaned with normal saline and dry tincture of benzoin was placed on both sides of all the incisions including the Kelvin needle incision and Steri-Strips were applied. All instrument and sponge counts were correct at the end of this portion of the case. The patient was then placed in a left lateral decubitus position. The skin lesion on his upper back was prepped and draped in a sterile fashion. The lesion was grasped with Adson forceps and excised using sharp dissection with the scalpel. The area was then cauterized. No sutures were placed. The area was cleaned and dried and a Band-Aid was placed over the small wound. The patient was then placed back supine on the operating table. He was extubated in the Operating Room and taken to the PACU in fair condition.. [facility] Signed and Approved by: DR ALDO CUI . 08/04/2021 06:37:00 [facility] Evaluation note Diagnosis Contact dermatitis due to poison moi- Primary Contact dermatitis and other eczema due to plants (except food) documented in this encounter [facility] Work Phone: Evaluation note* Diagnosis Mixed anxiety and depressive disorder Dysthymic disorder documented in this encounter [facility] HealthcareEvaluation note* Diagnosis Wellness examination- Primary Screening for malignant neoplasm of colon Class 1 obesity due to excess calories without serious comorbidity with body mass index (BMI) of 30.0 to 30.9 in adult Mixed anxiety and depressive disorder Dysthymic disorder Screening for malignant neoplasm of prostate Family history of heart disease documented in this encounter [facility] HealthcareHospital Discharge instructions* Attachments The following attachments cannot be sent through Care Everywhere. * Poison Moi - [place] - and [place] (Welsh) [facility] Work [facility] Summary Purpose Family History No Family History Records FoundNo Family History Records FoundNo Family History Records Found Advance Directives No Advanced Directives Records FoundNo Advanced Directives Records FoundNo Advanced Directives Records Found Additional Source Comments (unrecognized sect ion and content) No Status Records FoundNo Status Records FoundNo Status Records Found INFORMATION SOURCE (unrecogn ized section and content) DATE CREATED AUTHOR 2021 [facility] DATE CREATED AUTHOR AUTHOR'S ORGANIZ ATION 05/23/2024 [facility] DATE CREATED AUTHOR AUTHOR'S ORGANIZ ATION 06/03/2025 [facility] EPIC Reason for Visit (unrecogniz ed section and content) Reason Comments Poison Moi/Poison [place]/Poison [place] Expos ure Poison moi to bilat eyes. Swelling and itching to site Reason Comments Med Refill Reason Comments Med Refill Sertraline Scheduled Active and Recently Administ ered Medications (unrecognized section and content) Medication Order 05/16/2024 05/17/2024 05/18/2024 predniSONE (DELTASONE) tablet 60 mg (COMPLETED) 60 mg, Oral, ONCE, 1 dose, On 05/18/24 at 0745 0739 (Given - Provid er: Dede Camacho RN) Care Teams (unrecognized sec tion and content) Medtronics Technician Relationship Specialty Start Date End Date Jennifer Nassar MD [address] [place] [address] [address] [place] [address] PCP - [facility] 03/02/21 Jennifer Nassar MD [address] [facility] [address] [place] [address] PCP - General [facility] 05/02/23 Medtronics Technician Relationship Specialty Start Date End Date Jennifer Nassar MD [address] [facility] [address] [place] [address] PCP - [facility] 05/02/23 Medtronics Technician Relationship Specialty Start Date End Date Jennifer Nassar MD [address] [facility] [address] [place] [address] PCP - General [facility] 05/02/23 FOR RECORDS PERTAINING TO PATIENTS WHO ARE OR HAVE BEEN ENROLLED IN A CHEMICAL DEPENDENCY/SUBSTANCEABUSE PROGRAM, SOME INFORMATION MAY BE OMITTED. This clinical summary was aggregated from multiple sources. Caution should be exercised in using it in the provision of clinical care. This summary normalizes information from multiple sources, and as a consequence, information in this document may materially change the coding, format and clinical context of patient data. In addition, data may be omitted in some cases. CLINICAL DECISIONS SHOULD BE BASED ON THE PRIMARY CLINICAL RECORDS. [employer] provides no warranty or guarantee of the accuracy or completeness of information in this document.
--- OUTSIDE RECORDS SUMMARY | 2025-06-29 06:36 | XMS_ITS | Encounter Summary ---
Author Organization [facility] Address [address] [facility] [place] [address] Care Team Providers Care Casing Mixer Name Role Phone Jennifer Alvarado MD Primary Care Provider [phone] Encounter Details Date Type Department Care Team (Late st Contact Info) Description 06/02/2025 Abstract [facility] [address] [place] [address] [place] [id number] Jennifer Alvarado MD [address] [facility] [address] [place] [address] Social History Tobacco Use Types Packs/Day Years Used Date Smoking Tobacco: Never Smokeless Tobacco: Never Alcohol Use Standard Drinks/Week Comments Not Currently 0 (1 standard drink = 0.6 oz pur e alcohol) PHQ-2 Answer Date Recorded Patient Health Questionnaire-2 Score 0 06/01/2025 Sex and Gender Information Value Date Recorded Sex Assigned at Not on file Legal Sex Male 6:59 PM EDT Gender Identity Not on file Sexual Orientation Not on file documented as of this encounter Plan of Treatment Not on file documented as of this encounter Visit Diagnoses Not on filedocumented in this encounter Care Teams Casing Mixer Relationship Specialty Start Date End Date Jennifer Alvarado MD [address] [place] [address] [place] [address] PCP - General Family Medicine 05/02/23 documented as of this encounter
--- OUTSIDE RECORDS SUMMARY | 2025-06-29 06:36 | XMS_ITS | Clinical Summary ---
Author Organization [facility] Healthcare Address [address] [place] [address] Care Team Providers Care Remote Recruiter Name Role Phone Jennifer Alvarado MD Primary Care Provider [phone] Allergies No known active allergies Medications sertraline (Zoloft) 50 MG tabletIndicatio ns:Mixed anxiety and depressive disorder Take 1 tablet (50 mg) by mouth Daily TAKE 1 TABLET BY MOUTH EVERY DAY 90 tablet 3 5 Active sertraline (Zoloft) 50 MG tabletIndicatio ns:Mixed anxiety and depressive disorder TAKE 1 TABLET BY MOUTH EVERY DAY 7 tablet 5 06/01/20 25 Discontinu ed(Reorder ) Active Problems Problem Noted Date Diagnosed Date Family history of heart disease 06/01/2025 Class 1 obesity due to exces s calories without serious comorbidity with body mass index (BMI) of 30.0 to 30.9 in adult 06/01/2025 Mixed anxiety and depressive disorder 05/01/2023 Encounters Date Type Department Care Team Description 06/02/2025 Abstract [facility] [address] [place] [address] [place] [phone] Jennifer Alvarado MD 06/01/2025 4:30 PM EDT [facility] [address] [place] [address] [place] [phone] Aleja Fall, PA Wellness examination (Primary Dx); Screening for malignant neoplasm of colon; Class 1 obesity due to excess calories without serious comorbidity with body mass index (BMI) of 30.0 to 30.9 in adult; Mixed anxiety and depressive disorder; Screening for malignant neoplasm of prostate; Family history of heart disease 06/01/2025 Bamboo flowsheet [facility] [address] [place] [phone] Aleja Fall PA 06/01/2025 Travel 05/13/2025 [facility] [address] [facility] [address] [place] [phone] Jennifer Alvarado MD from Last 3 Months Immunizations Immunization Administration Dates Next Due Influenza, injectable, MDCK, preservative free, quadrivalent 09/01/2020 Influenza, injectable, quadrivalent, preservativ e free 09/18/2022 Zoster, Recombinant 07/18/2022 Family History Medical History Relation Name Comments Lung cancer Father Heart attack Mother Hypertension Mother Relation Name Status Comments Brother x1 Daughter x1 Father Mother Alive Son x3 Social History Tobacco Use Types Packs/Day Years Used Date Smoking Tobacco: Never Smokeless Tobacco: Never Tobacco Cessation:Counseling Given: Not Answered Alcohol Use Standard Drinks/Week Comments Not Currently 0 (1 standard drink = 0.6 oz pur e alcohol) PHQ-2 Answer Date Recorded Patient Health Questionnaire-2 Score 0 06/01/2025 Sex and Gender Information Value Date Recorded Sex Assigned at Not on file Legal Sex Male 6:59 PM EDT Gender Identity Not on file Sexual Orientation Not on file Last Filed Vital Signs Vital Sign Reading Time Taken Comments Blood Pressure 108/84 06/01/2025 4:33 PM EDT Pulse 93 06/01/2025 4:33 PM EDT Temperature 36.9 C (98.4 F) 08/23/2023 10:59 AM EDT Respiratory Rate 16 06/01/2025 4:33 PM EDT Oxygen Saturation 96% 06/01/2025 4:33 PM EDT Inhaled Oxygen Concentration - - Weight 111 kg (245 lb) 06/01/2025 4:33 PM EDT Height 190.5 cm (6' 3 ) 06/01/2025 4:33 PM EDT Body Mass Index 30.62 06/01/2025 4:33 PM EDT Plan of Treatment Health Maintenance Due Date Last Done Comments CT Colonography 1969 Colonoscopy 1969 FIT 1969 FOBT 1969 Sigmoidoscopy 1969 Colorectal Cancer Screening 02/04/2024 FIT-DNA 02/04/2024 02/03/2021, 02/03/2021 Influenza Vaccine (#1) 2025 09/18/2022, 2019 Procedures Procedure Name Priority Date/Time Associated Diagnosis Comments LAB COLOGUARD COLON CANCER SCREEN Routine 02/03/2021 from Last 3 Months or Most Recently Relevant to Health Maintenance Results * Cologuard?? colon cancer screening (02/03/2021) COLOGUARD RESULT REPORTABLE Negative Not Applicable [facility] Comment: A negative result indicates a low likelihood that a colorectal cancer (CRC) or an advanced adenoma (adenomatous polyps with more advanced pre-malignant features) is present. The chance that a person with a negative Cologuard test has a colorectal cancer is less than 1 in 1500 (negative predictive value >99.9%) or has an advanced adenoma is less than 5.3% (negative predictive value 94.7%). These data are based on a prospective cross-sectional screening study of 10,000 individuals at average risk for colorectal cancer who were screened with both Cologuard and colonoscopy. (Eliud Boykin al, N Engl J Med 2014;370(14):9050-2831) The normal value (reference range) for this assay is negative. COLOGUARD RE-SCREENING RECOMMENDATION: Periodic routine colorectal cancer screening is an important part of preventive healthcare for asymptomatic persons at average risk for colorectal cancer. Following a negative Cologuard result, the [place] [employer] Society and U.S. Multi-Society Task Force screening guidelines recommend a Cologuard re-screening interval of 3 years. References: [employer] Society (ACS). Colorectal cancer prevention and early detection. [place], [place]: [employer] Society; [updated 2015Mar 25]. https://www.cancer.org/cancer/uduiq-obvexk-qxbalr/ighaitanz-juujnfmhb-nxzzbdn/ac s-rec ommendations.html. Accessed August 01, 2018; German DK, Miguel A CR, Cindy DiazK, Colorectal Cancer Screening: Recommendations for Physicians and Patients from the U.S. Multi-Society Task Force on Colorectal Cancer Screening, Am J Gastroenterology 2017; 112:6025-1999. TEST TYPE: Composite algorithmic analysis of stool DNA-biomarkers with hemoglobin immunoassay. Quantitative values of individual biomarkers are not reportable and are not associated with individual biomarker result reference ranges. PRECAUTIONS AND LIMITATIONS: Cologuard is intended for colorectal cancer screening of adults of either sex, 45 years or older, who are at average-risk for colorectal cancer (CRC). Cologuard has been approved for use by the U.S. FDA. Cologuard may produce a false negative or false positive result. A negative Cologuard test result does not guarantee the absence of CRC or advanced adenoma (pre-cancer). Patients with a negative Cologuard test result should be advised to continue participating in a colorectal cancer screening program. The screening interval for Cologuard is currently recommended at an interval of every 3 years by the [employer] Society and U.S. Multi-Society Task Force. A false positive result occurs when Cologuard produces a positive result, even though a colonoscopy may not find colorectal cancer or precancerous polyps. The performance of Cologuard has been established in a cross sectional study (i.e., single point in time) of average-risk adults aged 50-84. Cologuard performance in patients ages 45 to 49 years was estimated by sub-group analysis of near-age groups. Cologuard performance data in a 10,000 patient pivotal study using colonoscopy as the reference method can be accessed at the following location: www.[employer]/results. Additional description of the Cologuard test process, warnings and precautions can be found at www.cologuardtest.com. Rx only. 02/03/2021 us Jennifer Alvarado MD LAB MOLECULAR DIAGNOSTICS HOLLI YOUNG Final Result [facility] from Last 3 Months or Most Recently Relevant to Health Maintenance Insurance BCBS Care Teams Remote Recruiter Relationship Specialty Start Date End Date Jennifer Alvarado MD [address] [facility] [address] [place] [address] PCP - General Family Medicine 05/02/23
[2025-06-29 07:34] LABS: Hematocrit 40.6 % (42.0-54.0); Hemoglobin 13.9 g/dL (14.0-18.0); Immature Granulocytes Abs Auto 0.02 10^3/uL (0.00-0.03); Immature Granulocytes Pct Auto 0.3 % (0.0-0.5); Lymphocytes Absolute Auto 1.5 10^3/uL (1.2-3.8); Mean Corpuscular HGB Conc 34.2 g/dL (29.9-35.2); Mean Corpuscular Hemoglobin 31.2 pg (25.9-34.0); Mean Corpuscular Volume 91.0 fL (80.0-94.0); Platelet Count 206 10^3/uL (150-450); Red Blood Count 4.46 10^6/uL (4.70-6.10); White Blood Count 6.7 10^3/uL (4.0-11.0)
[2025-06-29 07:52] LABS: Alanine Aminotransferase 23 U/L (16-63); Albumin Globulin Ratio 1.1; Albumin Level 4.0 g/dL (3.4-5.0); Alkaline Phosphatase 76 U/L (46-116); Anion Gap 12.9; Aspartate Amino Transferase 20 U/L (15-37); Blood Urea Nitrogen 19.0 mg/dL (7.0-18.0); Calcium 8.6 mg/dL (8.5-10.1); Carbon Dioxide 26.0 mmol/L (21.0-32.0); Chloride 106 mmol/L (98-107); Cholesterol 183 mg/dL (<=200); Estimated GFR (African America >60 (>=60 mL/min/1.73m^2); Estimated GFR (Non-African Ame >60 (>=60 mL/min/1.73m^2); Globulin 3.6 g/dL; Glucose 98 mg/dL (74-106); HDL Cholesterol 35 mg/dL (40-60); Potassium 3.9 mmol/L (3.5-5.1); Sodium 141 mmol/L (136-145); Total Protein 7.6 g/dL (6.4-8.2); Triglycerides 112 mg/dL (<=150); VLDL CHOLESTEROL 22.4 mg/dL
== END 2025-06-29 06:34 | disposition home or self-care (01) ==
LOC: LAB 06:33
PROVIDERS: PCP Family Medicine; Visit Provider Physician Assistant
DX: Z00.00 Encounter for general adult medical examination without abnormal findings (principal); E66.811 Obesity, class 1; E66.09 Other obesity due to excess calories; Z68.30 Body mass index [BMI] 30.0-30.9, adult; Z82.49 Family history of ischemic heart disease and other diseases of the circulatory system; Z12.5 Encounter for screening for malignant neoplasm of prostate
CPT/HCPCS: 36415; 80053; 80061; 85025; G0103

== ENCOUNTER 2025-07-05 06:36 | Outpatient (OUT) | payer BC, SELFPAY ==
--- OUTSIDE RECORDS SUMMARY | 2025-07-05 06:40 | XMS_ITS | Encounter Summary ---
Author Organization [facility] Address [address] [place] [facility] [place] [address] Care Team Providers Care Bolt Labeler Name Role Phone Jennifer Alvarado MD Primary Care Provider [phone] Encounter Details Date Type Department Care Team (Late st Contact Info) Description 06/29/2025 Clinisync Result Encounter [facility] External Department Unsolicited Aleja Fall, PA [address] [place] [address] [place] [address] Social History Tobacco Use Types Packs/Day Years [...] on file documented as of this encounter Procedures Procedure Name Priority Date/Time Associated Diagnosis Comments SRMCOH PROSTATE SPECIFIC ANTIGEN SCRN Routine 06/29/2025 6:41 AM EDT [facility] CMP (CMP) (FOR REMOTE [facility] USE) Routine 06/29/2025 6:41 AM EDT ALL LIPID PROFILE (FASTING) Routine 06/29/2025 6:41 AM EDT ALL CBC WITH AUTO DIFF Routine 06/29/2025 6:41 AM EDT documented in this encounter Results * (ABNORMAL) SRMCOH PROSTATE SPECIFIC ANTIGEN SCRN (06/29/2025 6:41 AM EDT) PROSTATE SPECIFIC ANTIGEN SCRN 4.62(H) <=4.00 ng/mL TBH 06/29/2025 6:41 AM EDT 06/29/2025 6:46 AM EDT Narrative CLINISYNC - 06/29/2025 8:46 AM EDT Aleja PRABHAKAR CLINISYHERMAN Final Result [facility]NC TB * (ABNORMAL) ALL LIPID PROFILE (FASTING) (06/29/2025 6:41 AM EDT) TRIGLYCERIDES 112 <=150 mg/dL TBH CHOLESTEROL 183 <=200 mg/dL TB HDL CHOLESTEROL 35(L) 40 - 60 mg/dL TB Comment: > or =60 mg/dl - LOW CARDIOVASCULAR RISK <40 mg/dl - HIGH CARDIOVASCULAR RISK LDL CHOLESTEROL CALCULATED 126.0 mg/dL TB Comment: <100 mg/dl OPTIMAL 100-129 mg/dl NEAR OR ABOVE OPTIMAL 130-159 mg/dl BORDERLINE HIGH 160-189 mg/dl HIGH >190 mg/dl VERY HIGH VLDL CHOLESTEROL 22.4 mg/dL TB CHOL HDL RATIO 5.2 TB Comment: 3.3 - 4.4 LOW RISK 4.4 - 7.1 AVERAGE RISK 7.1 - 11.0 MODERATE RISK >11.0 HIGH RISK 06/29/2025 6:41 AM EDT 06/29/2025 6:46 AM EDT Narrative CLINISYNC - 06/29/2025 7:54 AM EDT Aleja COSTELLOISYHERMAN Final Result [facility] TB * (ABNORMAL) [facility] CMP (CMP) (FOR REMOTE [facility] USE) (06/29/2025 6:41 AM EDT) SODIUM 141 136 - 145 mmol/L TBH POTASSIUM 3.9 3.5 - 5.1 mmol/L TBH CHLORIDE 106 98 - 107 mmol/L TBH CARBON DIOXIDE 26.0 21.0 - 32.0 mmol/L TBH ANION GAP 12.9 TBH GLUCOSE 98 74 - 106 mg/dL TBH BLOOD UREA NITROGEN 19.0(H) 7.0 - 18.0 mg/dL TBH CREATININE 1.04 0.70 - 1.30 mg/dL TBH TBH EGFR-AF ANDORRAN >60 >=60 mL/min/1. 73m 2 TBH TBH EGFR-NON AF ANDORRAN >60 >=60 mL/min/1. 73m 2 TBH BUN CREATININE RATIO 18.3 TBH CALCIUM 8.6 8.5 - 10.1 mg/dL TBH BILIRUBIN TOTAL 0.8 0.2 - 1.0 mg/dL TBH ASPARTATE AMINO TRANSFERASE 20 15 - 37 U/L TBH ALANINE AMINOTRANSFERASE 23 16 - 63 U/L TBH ALKALINE PHOSPHATASE 76 46 - 116 U/L TBH TOTAL PROTEIN 7.6 6.4 - 8.2 g/dL TBH ALBUMIN LEVEL 4.0 3.4 - 5.0 g/dL TBH GLOBULIN 3.6 g/dL TBH ALBUMIN GLOBULIN RATIO 1.1 TBH 06/29/2025 6:41 AM EDT 06/29/2025 6:46 AM EDT Narrative CLINISYNC - 06/29/2025 7:54 AM EDT us Aleja PRABHAKAR CLINISYNC Final Result [facility] * (ABNORMAL) ALL CBC WITH AUTO DIFF (06/29/2025 6:41 AM EDT) TBH WBC 6.7 4.0 - 11.0 10 3/uL TBH TBH RBC 4.46(L) 4.70 - 6.10 10 6/uL TBH TBH HGB 13.9(L) 14.0 - 18.0 g/dL TBH TBH HCT 40.6(L) 42.0 - 54.0 % TBH TBH MCV 91.0 80.0 - 94.0 fL TBH TBH MCH 31.2 25.9 - 34.0 pg TBH TBH MCHC 34.2 29.9 - 35.2 g/dL TBH TBH RDW 12.2 11.0 - 15.0 % TBH TBH PLT 206 150 - 450 10 3/uL TBH TBH MPV 10.8 9.5 - 13.5 fL TBH NEUTROPHILS PERCENT AUTO 62.7 43.0 - 75.0 % TBH LYMPHOCYTES PERCENT AUTO 22.0 20.5 - 60.0 % TBH MONOCYTES PERCENT AUTO 11.1 1.7 - 12.0 % TBH TBH EO % 2.7 0.9 - 7.0 % TBH BASOPHILS PERCENT AUTO 1.2 0.2 - 2.0 % TBH IMMATURE GRANULOCYTES PCT AUTO 0.3 0.0 - 0.5 % TBH NEUTROPHILS ABSOLUTE AUTO 4.2 1.4 - 6.5 10 3/uL TBH LYMPHOCYTES ABSOLUTE AUTO 1.5 1.2 - 3.8 10 3/uL TBH MONOCYTES ABSOLUTE AUTO 0.8 0.3 - 0.8 10 3/uL TBH TBH EO # 0.2 0.0 - 0.7 10 3/uL TBH BASOPHILS ABSOLUTE AUTO 0.1 0.0 - 0.1 10 3/uL TBH IMMATURE GRANULOCYTES ABS AUTO 0.02 0.00 - 0.03 10 3/uL TBH 06/29/2025 6:41 AM EDT 06/29/2025 6:46 AM EDT Narrative CLINISYNC - 06/29/2025 7:35 AM EDT Aleja PRABHAKAR CLINISYNC Final Result [facility] documented in this encounter Visit Diagnoses Not on filedocumented in this encounter Care Teams Bolt Labeler Relationship Specialty Start Date End Date Jennifer Alvarado MD [address] [facility] [address] [place] [address] PCP - General Family Medicine 05/02/23 documented as of this encounter
--- OUTSIDE RECORDS SUMMARY | 2025-07-05 06:40 | XMS_ITS | Encounter Summary ---
Author Organization [facility] Address [address] [place] [address] Care Team Providers Care Director Call Name Role Phone Jennifer Alvarado MD Primary Care Provider [phone] Encounter Details Date Type Department Care Team (Late st Contact Info) Description 06/29/2025 Results Follow-Up [facility] [address] [place] [address] Aleja Fall PA [address] [place] [address] Elevated PSA (Primary Dx) Social History Tobacco Use Types Packs/Day Years [...] on file documented as of this encounter Miscellaneous Notes * Telephone Encounter - KYLE PATTERSON - 06/29/2025 1:42 PM EDT Spoke with patient and he had a verbal understanding of his results and will get his blood draw done next week * Telephone Encounter - AKI Huerta - 06/29/2025 8:34 AM EDT Please let pt know that his recent labs showed very mild anemia. Would recommend a multivitamin with iron once a day. Also very mild change in kidney function, would just recommend increasing his water intake. Cholesterol is improved from previous. PSA was elevated. I ordered a more specific lab to evaluate the elevated PSA further. Encourage him to stay hydrated up to the lab being drawn and avoid intercourse for a few days prior to the lab. He does not need annie fasting. If the follow up testing is abnormal, would recommend a referral to Urology for furtherevaluation. (Ok to fax lab order to [facility] if that is where pt would like to have it done) documented in this encounter Plan of Treatment Scheduled Orders Name Type Priority Associated Diagnoses Orde r Schedule PSA, total and free Lab Routine Elevated PSA Expected: 06/29/2025 (Approximate), Expires: 06/29/2026 documented as of this encounter Visit Diagnoses Diagnosis Elevated PSA- Primary Elevated prostate specific antigen (PSA) documented in this encounter Care Teams Director Call Relationship Specialty Start Date End Date Jennifer Alvarado MD [address] [place] [address] PCP - General Family Medicine 05/02/23 documented as of this encounter
--- OUTSIDE RECORDS SUMMARY | 2025-07-05 06:40 | XMS_ITS | Encounter Summary ---
Author Organization [facility] Address [address] [facility] [address] Care Team Providers Care Ict Security Specialist Name Role Phone Jennifer Alvarado MD Primary Care Provider [phone] Encounter Details Date Type Department Care Team (Late st Contact Info) Description 06/29/2025 Abstract [facility] [address] [facility] [address] [place] [id number] Jennifer Alvarado MD [address] [facility] [address] [place] [address] Social History Tobacco Use Types Packs/Day Years [...] on filedocumented in this encounter Care Teams Ict Security Specialist Relationship Specialty Start Date End Date Jennifer Alvarado MD [address] [place] [address] PCP - General Family Medicine 05/02/23 documented as of this encounter
--- OUTSIDE RECORDS SUMMARY | 2025-07-05 06:40 | XMS_ITS | Encounter Summary ---
Author Organization [facility] Address [address] [facility] [place] [address] Care Team Providers Care Printing Table Hand Name Role Phone Jennifer Alvarado MD Primary Care Provider [phone] Encounter Details Date Type Department Care Team (Late st Contact Info) Description 06/02/2025 Abstract [facility] [address] [facility] [address] [place] [id number] Jennifer Alvarado MD [address] [facility] [address] [place] [address] Social History Tobacco Use Types Packs/Day Years [...] on filedocumented in this encounter Care Teams Printing Table Hand Relationship Specialty Start Date End Date Jennifer Alvarado MD [address] [place] [address] PCP - General Family Medicine 05/02/23 documented as of this encounter
--- OUTSIDE RECORDS SUMMARY | 2025-07-05 06:40 | XMS_ITS | CCD ---
Author Organization [facility] Care Team Providers Care Client Advocate Name Role Phone REQUEST, DR QUEVEDO LISTED [...] Unavailable Jennifer Nassar MD Primary Care Provider [phone] ALEJA NICOLE Attending Unavailable Medications Current Medications [...] at 0745 sertraline 50 mg oral tablet (9 sources) Serotonin Reuptake Inhibitor Start: 05-13-2025 End: [...] food] Onset: 05-18-2024 05-18-2024 Episodic Anxiety disorders (8 sources) Mixed anxiety and depressive disorder; Translations: [...] Chronic Other nutritional; endocrine; and metabolic disorders (5 sources) Obesity caused by energy imbalance; Translations: [Class 1 obesity due to excess calories without serious comorbidity with body mass index (BMI) of 30.0 to 30.9 in adult] Onset: 06-01-2025 06-01-2025 Chronic Other screening for suspected conditions (not mental disorders or infectious disease) (4 sources) Patient encounter status; Translations: [Encounter for screening for malignant neoplasm of colon] 06-01-2025 Episodic Residual codes; unclassified (5 sources) Family history of cardiac disorder; Translations: [...] 06-07-2021 Episodic Other aftercare (1 source) Other penitentiary (current) drug therapy; Translations: [OTH [employer]TERY FILLER CURRENT DRUG THERAPY] Onset: 08-02-2021 Episodic Other [...] Results Test Name Value Interpretation Reference Range Facility ALL CBC WITH AUTO DIFFon BASOPHILS ABSOLUTE AUTO 0.1 [facility] Basophils/100 WBC (Bld) 1.2 % 0.2 - 2.0 % [facility] Eosinophils/100 WBC (Bld) 2.7 % 0.9 - 7.0 % [facility] Erythrocyte distribution width (RBC) [Ratio] 12.2 % 11.0 - 15.0 % [facility] Hematocrit (Bld) [Volume fraction] 40.6 % Low 42.0 - 54.0 % [facility] Hemoglobin (Bld) [Mass/Vol] 13.9 g/dL Low 14.0 - 18.0 g/dL [facility] IMMATURE GRANULOCYTES ABS AUTO 0.02 [facility] Immature granulocytes/100 WBC (Bld) 0.3 % 0.0 - 0.5 % [facility] Interpretation and review of laboratory results Abnormal [facility] LYMPHOCYTES ABSOLUTE AUTO 1.5 [facility] Lymphocytes/100 WBC (Bld) 22 % 20.5 - 60.0 % [facility] MCH (RBC) [Entitic mass] 31.2 pg 25.9 - 34.0 pg [facility] MCHC (RBC) [Mass/Vol] 34.2 g/dL 29.9 - 35.2 g/dL [facility] MCV (RBC) [Entitic vol] 91 fL 80.0 - 94.0 fL [facility] MONOCYTES ABSOLUTE AUTO 0.8 [facility] Monocytes/100 WBC (Bld) 11.1 % 1.7 - 12.0 % [facility] NEUTROPHILS ABSOLUTE AUTO 4.2 [facility] Neutrophils/100 WBC (Bld) 62.7 % 43.0 - 75.0 % [facility] Platelet mean volume (Bld) [Entitic vol] 10.8 fL 9.5 - 13.5 fL [facility] # 0.2 [facility] TB PLT 206 NOM [facility] e TB RBC 4.46 Low [facility] Health[facility] TB WBC 6.7 [facility] AMYLASEon 06-07-2021 Amylase [Catalytic activity/Vol] 38 U/L Normal 31-110 [facility] Comment on above: Performed By: #### C BASIL BOOKER LIPA #### [facility] [address] [place], [place] [address] Tessa Aleja CBC W MANUAL DIFFon 06-07-20 21 ATYPICAL LYMPH # Normal [facility] Comment on above: Performed By: #### C BCMAN #### [facility] [address] [place], [place] [id number] Tessa Aleja ATYPICAL LYMPH % Normal [facility] Comment on above: Performed By: #### C STACIE #### [facility] [address] [place] [address] Tessa Aleja BAND # Normal 0.0-0.3 [facility] Comment on above: Performed By: #### C STACIE #### [facility] [address] [place] [address] Tessa Aleja BAND % Normal 0-5 [facility] Comment on above: Performed By: #### C STACIE #### [facility] [address] [place] [address] Tessa Aleja BASOM # 0.00 103/ul Normal 0.00-0.10 [facility] Comment on above: Performed By: #### C STACIE #### [facility] [address] [place] [address] Tessa Aleja BASOM % 0.0 % Critically low 0.2-2.0 [facility] Comment on above: Performed By: #### C STACIE #### [facility] [address] [place] [address] Tessa Aleja BLAST # Normal [facility] Comment on above: Performed By: #### C STACIE #### [facility] [address] [place] [address] Tessa Aleja BLAST % Normal [facility] Comment on above: Performed By: #### C STACIE #### [facility] [address] [place] [address] Tessa Aleja CORRECTED WBC Normal 4.0-11.0 [facility] Comment on above: Performed By: #### C STACIE #### [facility] [address] [place] [address] Tessa Aleja EOS # 0.00 103/ul Normal 0.00-0.70 [facility] Comment on above: Performed By: #### C STACIE #### [facility] [address] [place] [address] Tessa Aleja EOS% 0.0 % Critically low 0.9-7.0 [facility] Comment on above: Performed By: #### Katia QUINONES #### [facility] [address] [id number] Tessa Aleja HCT 42.8 % Normal 42.0-54.0 [facility] Comment on above: Performed By: #### Katia QUINONES #### [facility] [address] [place] [id number] Tessa Aleja HGB 14.4 g/dl Normal 14.0-18.0 [facility] Comment on above: Performed By: #### C STACIE #### [facility] [address] [place] [address] Tessa Aleja LYMPHM # 1.72 103/ul Normal 1.20-3.80 [facility] Comment on above: Performed By: #### Katia QUINONES #### [facility] [address] [place] [address] Tessa Aleja LYMPHM% 14.0 % Critically low 20.5-60.0 [facility] Comment on above: Performed By: #### Katia QUINONES #### [facility] [address] [place], [place] [id number] Tessa Aleja MCH 30.9 pg Normal 25.9-34.0 [facility] Comment on above: Performed By: #### Katia QUINONES #### [facility] [address] [place] [address] Tessa Aleja MCHC 33.6 g/dl Normal 29.9-35.2 [facility] Comment on above: Performed By: #### Katia QUINONES #### [facility] [address] [place] [address] Tessa Aleja MCV 91.8 fL Normal 80.0-94.0 [facility] Comment on above: Performed By: #### Katia QUINONES #### [facility] [address] [place] [address] Tessa Aleja METAMYELOCYTE # Normal [facility] Comment on above: Performed By: #### Katia QUINONES #### [facility] [address] [place], [place] [address] Tessa Aleja METAMYELOCYTE % Normal [facility] Comment on above: Performed By: #### Katia QUINONES #### [facility] [address] [place] [address] Tessa Aleja MONOM# 1.35 103/ul Critically high 0.30-0.80 [facility] Comment on above: Performed By: #### Katia QUINONES #### [facility] [address] [address] Tessa Aleja MONOM% 11.0 % Normal 1.7-12.0 [facility] Comment on above: Performed By: #### Katia QUINONES #### [facility] [address] [place] [id number] Tessa Aleja MPV 11.0 fL Normal 9.5-13.5 [facility] Comment on above: Performed By: #### Katia QUINONES #### [facility] [address] [place] [address] Tessa Aleja MYELOCYTE # Normal [facility] Comment on above: Performed By: #### Katia QUINONES #### [facility] [address] [place] [address] Tessa Aleja MYELOCYTE % Normal [facility] Comment on above: Performed By: #### Katia QUINONES #### [facility] [address] [place] [address] Tessa Aleja NRBC Normal [facility] Comment on above: Performed By: #### Katia QUINONES #### [facility] [address] [place], [place] [id number] Tessa Laeja PLT 228 103/ul Normal 150-450 [facility] Comment on above: Performed By: #### Katia QUINONES #### [facility] [address] [place], [place] [id number] Tessa Aleja RBC 4.66 106/ul Critically low 4.70-6.10 [facility] Comment on above: Performed By: #### Katia QUINONES #### [facility] [address] [place] [address] Tessa Aleja RDW 12.2 % Normal 11.0-15.0 [facility] Comment on above: Performed By: #### C STACIE #### [facility] [address] [place], [place] [address] Tessa Masterson SEG # 9.22 103/ul Critically high 1.40-6.50 [facility] Comment on above: Performed By: #### C STACIE #### [facility] [address] [place], [place] [address] Tessa Masterson SEG % 75.0 % Normal 43.0-75.0 [facility] Comment on above: Performed By: #### C STACIE #### [facility] [address] [place], [place] [address] Tessa Masterson WBC 12.3 103/ul Critically high 4.0-11.0 [facility] Comment on above: Performed By: #### C STACIE #### [facility] [address] [place], [place] [address] ABD/PELVIS WO CONon 06-07 [...] FABIOLA GORDON Date: 2021-06-07 07:08 Normal [facility] ER URINE PROFILEon 1 Bilirubin Ql (U) Negative Normal NEGATIVE [facility] Comment on above: Performed By: #### U MICRO, ERUR #### [facility] [address] [place] [address] Tessa Aleja Clarity (U) CLEAR Normal CLEAR [facility] Comment on above: Performed By: #### U MICRO, ERUR #### [facility] [address] [place] [address] Tessa Aleja Color (U) LT. YELLOW Normal YELLOW [facility] Comment on above: Performed By: #### U MICRO, ERUR #### [facility] [address] [place] [address] Tessa Aleja ERUAHD A micrscopic examination will be performed if indicated. Normal [facility] Comment on above: Performed By: #### U MICRO, ERUR #### [facility] [address] [place] [address] Tessa Aleja Glucose Ql (U) Negative Normal NEGATIVE [facility] Comment on above: Performed By: #### U MICRO, ERUR #### [facility] [address] [place] [address] Tessa Aleja Hemoglobin Ql (U) TRACE-INTACT Abnormal NEGATIVE [facility] Comment on above: Performed By: #### U MICRO, ERUR #### [facility] [address] [place] [address] Tessa Aleja Ketones Ql (U) Negative Normal NEGATIVE [facility] Comment on above: Performed By: #### U MICRO, ERUR #### [facility] [address] [place] [address] Tessa Aleja LEUKOCYTES Negative Normal NEGATIVE [facility] Comment on above: Performed By: #### U MICRO, ERUR #### [facility] [address] [place] [address] Tessa Aleja Nitrite Ql (U) Negative Normal NEGATIVE [facility] Comment on above: Performed By: #### U MICRO, ERUR #### [facility] [address] [place], [place] [phone] Tessatierra Masterson pH (U) 6.0 [pH] Normal 5-9 [facility] Comment on above: Performed By: #### U MICRO, ERUR #### [facility] [address] [place] [address] Tessa Masterson SPEC GRAVITY 1.025 Normal 1.005-<=1.025 [facility] Comment on above: Performed By: #### U MICRO, ERUR #### [facility] [address] [place] [address] Tessatierra Masterson UA PROTEIN Negative Normal NEGATIVE/ TRACE [facility] Comment on above: Performed By: #### U MICRO, ERUR #### [facility] [address] [place] [address] Tessa Masterson UR MICRO IND INDICATED Normal [facility] Comment on above: Performed By: #### U MICRO, ERUR #### [facility] [address] [place] [address] Tessa Masterson Urobilinogen Qn (U) 0.2 {Daniel'U}/dL Normal 0.2 - 1. 0 [facility] Comment on above: Performed By: #### U MICRO, ERUR #### [facility] [address] [place] [address] Tessa Masterson LACTATE/LACTIC ACIDon 2020 Lactate [Moles/Vol] 0.8 mmol/L Normal 0.7-2.0 [facility] Comment on above: Performed By: #### L ACT #### [facility] [address] [place] [address] Tessatierra Masterson LIPASEon 06-07-2021 Lipase [Catalytic activity/Vol] 148.0 U/L Normal 23.0-300.0 [facility] Comment on above: Performed By: #### C MP, BASIL, LIPA #### [facility] [address] [place] [address] Tessa Masterson PROF 14(COMP METB)on 021 Albumin [Mass/Vol] 4.1 g/dL Normal 3.5-5.0 [facility] Comment on above: Performed By: #### C BASIL BOOKER LIPA #### [facility] [address] [place] [address] Tessa Aleja Albumin/Globulin [Mass ratio] 1.1 {ratio} Normal [facility] Comment on above: Performed By: #### C BASIL BOOKER LIPA #### [facility] [address] [place] [address] Tessa Laeja ALP [Catalytic activity/Vol] 84 U/L Normal 38-126 [facility] Comment on above: Performed By: #### C BASIL BOOKER LIPA #### [facility] [address] [place] [address] Tessa Aleja ALT [Catalytic activity/Vol] 20 U/L Critically low 21-72 [facility] Comment on above: Performed By: #### C BASIL BOOKER LIPA #### [facility] [address] [place] [address] Tessa Aleja Anion gap [Moles/Vol] 14.2 mmol/L Normal [facility] Comment on above: Performed By: #### C BASIL BOOKER LIPA #### [facility] [address] [place] [address] Tessa Aleja AST [Catalytic activity/Vol] 15 U/L Critically low 17-59 [facility] Comment on above: Performed By: #### C BASIL BOOKER LIPA #### [facility] [address] [place] [address] Tessa Aleja Bilirubin [Mass/Vol] 1.2 mg/dL Normal 0.2-1.3 [facility] Comment on above: Performed By: #### C BASIL BOOKER LIPA #### [facility] [address] [place] [address] Tessa Aleja Calcium [Mass/Vol] 8.8 mg/dL Normal 8.4-10.2 [facility] Comment on above: Performed By: #### C BASIL BOOKER LIPA #### [facility] [address] [place] [address] Tessa Aleja Chloride [Moles/Vol] 102 mmol/L Normal 98-107 [facility] Comment on above: Performed By: #### C BASIL BOOKER LIPA #### [facility] [address] [place] [address] Tessa Aleja CO2 [Moles/Vol] 28.4 mmol/L Normal 22.0-30.0 [facility] Comment on above: Performed By: #### C BASIL BOOKER LIPHernando #### [facility] [address] [place] [address] Tessa Aleja Creatinine [Mass/Vol] 1.26 mg/dL Critically high 0.66-1.25 [facility] Comment on above: Performed By: #### C BASIL BOOKER LIPA #### [facility] [address] [place] [address] Tessa Aleja EGFR-AF KOSOVAN >60 Normal >=60 [facility] Comment on above: Performed By: #### C BASIL BOOKER LIPA #### [facility] [address] [place] [address] Tessa Aleja EGFR-NON AF KOSOVAN =60 Normal >=60 [facility] Comment on above: Performed By: #### C BASIL BOOKER LIPA #### [facility] [address] [place] [address] Tessa Aleja Globulin (S) [Mass/Vol] 3.7 g/dL Normal [facility] Comment on above: Performed By: #### C BASIL BOOKER LIPA #### [facility] [address] [place] [address] Tessa Aleja Glucose [Mass/Vol] 104 mg/dL Normal 74-106 [facility] Comment on above: Performed By: #### C BASIL BOOKER LIPA #### [facility] [address] [place] [address] Tessa Aleja Potassium [Moles/Vol] 4.6 mmol/L Normal 3.4-5.0 [facility] Comment on above: Performed By: #### C BASIL BOOKER LIPA #### [facility] [address] [place] [address] Tessa Aleja Protein [Mass/Vol] 7.8 g/dL Normal 6.1-8.2 [facility] Comment on above: Performed By: #### C BASIL BOOKER LIPA #### [facility] [address] [id number] Tessa Aleja Sodium [Moles/Vol] 140 mmol/L Normal 137-145 [facility] Comment on above: Performed By: #### C BASIL BOOKER LIPA #### [facility] [address] [place] [address] Tessa Aleja Urea nitrogen [Mass/Vol] 15.0 mg/dL Normal 9.0-20.0 [facility] Comment on above: Performed By: #### C BASIL BOOKER LIPA #### [facility] [address] [place] [address] Tessa Aleja Urea nitrogen/Creatinine [Mass ratio] 11.9 mg/mg Normal [facility] Comment on above: Performed By: #### C BASIL BOOKER LIPA #### [facility] [address] [place], [place] [id number] Tessa Aleja URINE MICROSCOPIC ONLYon BACTERIA NONE SEEN Normal NONE SEEN [facility] Comment on above: Performed By: #### U MICRO, ERUR #### [facility] [address] [place] [address] Tessa Aleja Bacteria identified Cx Nom (U) NOT INDICATED Normal [facility] Comment on above: Performed By: #### U MICRO, ERUR #### [facility] [address] [place], [place] [address] Tessa Aleja CAST NONE SEEN Normal NONE SEEN [facility] Comment on above: Performed By: #### U MICRO, ERUR #### [facility] [address] [place], [place] [phone] Tessa Aleja Crystals LM Nom (Urine sed) NONE SEEN Normal NONE SEEN [facility] Comment on above: Performed By: #### U MICRO, ERUR #### [facility] [address] [place] [address] Tessa Aleja Epithelial cells LM Ql (Urine sed) RARE Normal NONE SEEN /RARE [facility] Comment on above: Performed By: #### U MICRO, ERUR #### [facility] [address] [place] [address] Tessa Aleja MUCOUS NONE SEEN Normal NONE SEEN [facility] Comment on above: Performed By: #### U MICRO, ERUR #### [facility] [address] [place] [address] Tessa Aleja RBC 0-2 Normal 0-2 [facility] Comment on above: Performed By: #### U MICRO, ERUR #### [facility] [address] [place] [address] Tessa Aleja WBC NONE SEEN Normal NONE SEEN [facility] Comment on above: Performed By: #### U MICRO, ERUR #### [facility] [address] [place] [address] Tessa Aleja Covid-19 PCR (CVDTB)on SARS-CoV-2 (COVID-19) RNA DWAIN+probe Ql (Unsp spec) Not detected Normal NOT DETECTED [facility] Comment on above: Result Comment: This test is not yet approved or cleared by the [place] FDA. When there are no FDA-approved or cleared tests available, and other criteria are met, FDA can make tests available under an emergency access mechanism called an Emergency Use Authorization (EUA). The EUA for this test is supported by the [place] of Health and Human Service's (HHS's) declaration [...] consistent with SARS-CoV-2. Performed By: #### C VDTBH #### [facility] [address] [place] [address] Tessa Masterson Vital Signs Date Time Vital Sign Value Performing Clinician Facility 06-01-2025 16:33-0400 Body height 190.5 cm Aleja Hemmer PA Work Phone: [facility] 06-01-2025 16:33-0400 Body mass index (BMI) [Ratio] 30.62 kg/m2 Aleja Hemmer PA Work Phone: [facility] 06-01-2025 16:33-0400 Body weight 111.13 kg Aleja Hemmer PA Work Phone: [facility] 06-01-2025 16:33-0400 Diastolic blood pressure 84 mm[Hg] Aleja Hemmer PA Work Phone: [facility] 06-01-2025 16:33-0400 Heart rate 93 /min Aljea Hemmer PA Work Phone: [facility] 06-01-2025 16:33-0400 Respiratory rate 16 /min Aleja Hemmer PA Work Phone: [facility] 06-01-2025 16:33-0400 SaO2% (BldA) [Mass fraction] 96 % Aleja Hemmer PA Work Phone: [facility] 06-01-2025 16:33-0400 Systolic blood pressure 108 mm[Hg] Aleja Hemmer PA Work Phone: [facility] 05-18-2024 07:26-0400 Body temperature 96.6 [degF] Edwin Boland MD Work Phone: [facility] 05-18-2024 07:26-0400 Diastolic blood pressure 82 mm[Hg] Edwin Boland MD Work Phone: [facility] 05-18-2024 07:26-0400 Heart rate 61 /min Edwin Boland MD Work Phone: [facility] 05-18-2024 07:26-0400 Respiratory rate 16 /min Edwin Boland MD Work Phone: [facility] 05-18-2024 07:26-0400 SaO2% (BldA) [Mass fraction] 96 % Edwin Boland MD Work Phone: [facility] 05-18-2024 07:26-0400 Systolic blood pressure 130 mm[Hg] Edwin Boland MD Work Phone: [facility] 05-18-2024 07:25-0400 Body height 190.5 cm Edwin Boland MD Work Phone: [facility] Encounters Encounter Date Encounter Type Care Provider Facility Start: 06-29-2025 End: 06-29-2025 [facility] Result Encounter Aleja PRABHAKAR Work Phone: [facility] Unsolicited Start: 06-29-2025 End: 06-29-2025 [facility] Result Encounter Aleja PRABHAKAR Work Phone: [facility] Unsolic[facility] Start: 06-01-2025 End: 06-01-2025 Patient encounter status Aleja Nicole PA Work Phone: [facility] Work Phone: Start: 06-01-2025 End: 06-01-2025 Periodic preventive med est patient 40-64yrs Aleja PRABHAKAR Work Phone: [facility] Comment on [...] patient visit Edwin Boland MD Work Phone: [facility] Emergency Medicine Start: 11-21-2021 End: 11-22-2021 ambulatory GREGORIO ALMARAZ Facility:[facility] Start: 07-28-2021 End: 07-28-[address] JENNIFER NASSAR Facility:[facility] Start: 07-25-2021 Encounter for other preprocedural examination DR ALDO CUI [facility] Start: 07-12-2021 End: 07-13-[address] JENNIFER NASSAR Facility:[facility] Start: 07-12-2021 End: 07-13-2021 Encounter for other preprocedural examination DR JENNIFER NASSAR Facility:[facility] Start: 06-07-2021 End: 06-07-[address] GILMA MITCHELL Facility:[facility] Start: 03-06-2021 End: 03-06-[address] JENNIFER NASSAR Facility:[facility] Start: 02-17-2021 End: 07-07-[address] QUEVEDO LISTED REQUEST Facility: Procedures Date Procedure Procedure Detail Performing Clinician Start: 06-29-2025 ALL CBC WITH AUTO DIFF Aleja PRABHAKAR Work Phone: Plan of Treatment Date Care Activity Detail Author Start: 08-02-2025 Influenza vaccination Influenza Vacc ine (#1) [facility] Start: 06-01-2025 End: 06-01-2025 Patient encounter procedure 06/01/2025 4:30 PM EDT Office Visit [facility] [address] [place], [place] [id number] Aleja Nicole PA [address] [place], [place] [id number] Arrived [facility] Comment on above: [...] Visit [facility] [address] [facility] [address] [place] [id number] Marilyn Austin ICE CARVER [address] [facility] [address] [place] [address] [facility] Start: 08-02-2024 Influenza vaccination [facility] Start: 02-04-2024 Screening for malign ant neoplasm of colon [facility] Start: 08-02-2023 COVID-19 VACCINE ( season) COVID-19 VACCINE ( season) [facility] Start: 09-12-2022 Zoster vaccine hzv l janel for subcutaneous use ZOSTER (SHINGLES) VACCINE (2 of 2) [facility] Start: 02-03-2022 Screening for malign ant neoplasm of colon COLORECTAL CANCER SCREENING DISCUSSION [facility] Start: 2019 Prostate specific antigen measurement PROSTATE CANCER SCREENING DISCUSSION [facility] Start: 2009 Lipid panel LIPID SCREENING [facility] Start: 1988 Hepatitis B vaccination HEP B VACCINE (1 of 3 - 19+ 3-dose series) [facility] Start: 1988 Third diphtheria, tetanus and acellular pertussis (DTaP) vaccination TDAP (ADULT) [facility] Start: 1984 HIV screening HIV SCREENING DISCUSSION [facility] Start: 1969 Hepatitis C screening HEPATITI S C VIRUS SCREENING [facility] Start: 1969 Screening for malign ant neoplasm of colon [facility] Start: 1969 Tetanus vaccination TETANUS [facility] CBC W Auto Different ial panel - Blood CBC and differential Lab Routine Wellness examination Class 1 obesity due to excess calories without serious comorbidity with body mass index (BMI) of 30.0 to 30.9 in adult Family history of heart disease Ordered: 06/01/2025 [facility] Comment on above: Ordered: 06/01/2025 Comprehensive metabo lic 2000 panel - Serum or Plasma Comprehensive metabolic panel Lab Routine Wellness examination Class 1 obesity due to excess calories without serious comorbidity with body mass index (BMI) of 30.0 to 30.9 in adult Family history of heart disease Ordered: 06/01/2025 [facility] Comment on above: Ordered: 06/01/2025 Lipid 1996 panel - S airam or Plasma Lipid panel Lab Routine Wellness examination Class 1 obesity due to excess calories without serious comorbidity with body mass index (BMI) of 30.0 to 30.9 in adult Family history of heart disease Ordered: 06/01/2025 [facility] Comment on above: Ordered: 06/01/2025 Prostate specific Ag [Mass/volume] in Serum or Plasma PSA Lab Routine Wellness examination Screening for malignant neoplasm of prostate Ordered: 06/01/2025 [facility] Comment on above: Ordered: 06/01/2025 Immunizations Immunization Date Immunization Notes Care Provider [facility] 09-18-2022 influenza, injectabl e, quadrivalent, preservative free Jennifer Nassar MD Work Phone: [facility] 09-18-2022 influenza virus vaccine, unspecified formulation Edwin Boland MD Work Phone: [facility] Work Phone: 07-18-2022 zoster vaccine recombinant Jennifer Nassar MD Work Phone: [facility] 07-18-2022 zoster vaccine, unspecified formulation Edwin Boland MD Work Phone: [facility] Work Phone: 09-01-2020 Influenza, injectabl e, Madin Yu Canine Kidney, preservative free, quadrivalent Jennifer Nassar MD Work Phone: [facility] Payers Date Payer Category Payer [facility] [id number] 2019 Unknown ANTHEM ANTHEM HM O PPO POS [id number] 2019-Present [address] [place] [address] [id number] 1969 Unknown [id number] 1969 Unknown [id number] 1969 Unknown [id number] 1969 Unknown [id number] 1969 Unknown [id number] 1969 Unknown [id number] 1959 Self-pay 1959 Unknown [id number] Unknown [id number] Unknown [id number] Social History Date Type Detail Facility [facility] smoking consumption unknown [facility] Work Phone: Start: 03-18-2015 End: 06-01-2025 History of Social function [facility] Work Phone: Start: 03-18-2015 End: 06-01-2025 Tobacco use panel [facility] Work Phone: Start: 1970 Sex assigned at Not on file [facility] Work Phone: Start: 05-02-2023 Tobacco smoking stat us NHIS Never smoked tobacco [facility] Start: 05-02-2023 Tobacco use and exposure Smokeless tobacco non-user [facility] Start: 02-22-2024 End: 06-01-2025 Alcoholic beverage intake Ex-drinker (finding) [facility] Functional Status Date Assessment Result Facility 06-01-2025 Patient Health Quest ionnaire 2 item (PHQ-2) [Reported] [facility] Clinical Notes 07-28-2021 to 06-01-2025 AKI Huerta [...] skin lesion-back/Wiecek (benign) [facility] REPAIR 07/2018 [place] Visit Vitals BP 108/84 Pulse 93 Resp [...] 06/01/2026) for Wellness. documented in this encounter [facility] 09-14-2024 Miscellaneous Notes scheduled Pt has not been seen in office in over a year. Please help him get set up with Dr. Nassar for a Wellness within the next month. documented in this encounter [facility] 09-14-2024 Telephone encounter Note scheduled [facility] 09-12-2024 Telephone encounter Note Pt has not been seen in office in over a year. Please help him get set up with Dr. Nassar for a Wellness within the next month. [facility] 05-18-2024 Physician Emergency department Note EMERGENCY DEPARTMENT ENCOUNTER CHIEF COMPLAINT Poison Moi/Poison Bisbee/Poison Sumac Exposure (Poison moi to bilat eyes. Swelling and itching to site) Note to patient: The 21st Century Cures Act requires that medical notes like this one to be available to patients in the interest of transparency. Please be advised, this is a medical document. It is intended as vvsu-tp-xqlo communication. It is written in medical language [...] any questions. Edwin Boland MD 05/18/24 0735 [facility] Work Phone: 05-18-2024 Emergency department Note EMERGENCY DEPARTMENT ENCOUNTER CHIEF COMPLAINT Poison Moi/Poison Bisbee/Poison Sumac Exposure (Poison moi to bilat eyes. Swelling and itching to site) Note to patient: The Century Cures Act requires that medical notes like this one to be available to patients in the interest of transparency. Please be advised, this is a medical document. It is intended as fezu-fa-atlm communication. It is written in medical language [...] MD 05/18/24 0735 documented in this encounter [facility] Work Phone: 07-28-2021 Note OPERATIVE NOTE [...] mm in diameter. SURGEON: Aldo Cui MD PROJECT STRUCTURAL ENGINEER: NE Brian. ANESTHESIA: General, 0.5% Marcaine for [...] placed into the abdominal cavity. A small sulma in the skin was made using an [...] taken to the PACU in fair condition.. IFC Signed and Approved by: DR ALDO CUI . 08/04/2021 06:37:00 [facility] Evaluation note Diagnosis Contact dermatitis due to poison moi- Primary Contact dermatitis and other eczema due to plants (except food) documented in this encounter [facility] Work Phone: Evaluation note* Diagnosis Mixed anxiety and depressive disorder Dysthymic disorder [facility] Diagnosis Wellness examination- Primary Screening for malignant neoplasm of colon Class 1 obesity due to excess calories without serious comorbidity with body mass index (BMI) of 30.0 to 30.9 in adult Mixed anxiety and depressive disorder Dysthymic disorder Screening for malignant neoplasm of prostate Family history of heart disease [facility]* Attachments The following attachments cannot be sent through Care Everywhere. * Poison Moi - Bisbee - and Sumac (Polish) [facility] Work [facility] Summary Purpose Family History [...] content) DATE CREATED AUTHOR 2021 [facility] DATE CREATED AUTHOR AUTHOR'S ORGANIZ ATION 05/23/2024 [facility] DATE CREATED AUTHOR AUTHOR'S ORGANIZ ATION 06/03/2025 [facility] EPIC Reason for Visit (unrecogniz ed section and content) Reason Comments Poison Moi/Poison Bisbee/Poison Sumac Expos ure Poison moi to bilat eyes. Swelling and itching to site Reason Comments Med Refill Reason Comments Med Refill Sertraline Scheduled Active and Recently Administ ered Medications (unrecognized section and content) Medication Order 05/16/2024 05/17/2024 05/18/2024 predniSONE (DELTASONE) tablet 60 mg (COMPLETED) 60 mg, Oral, ONCE, 1 dose, On 05/18/24 at [id number] [id number] (Given - Provid er: Dede Camacho RN) Care Teams (unrecognized sec tion and content) Client Advocate Relationship Specialty Start Date End Date Jennifer Nassar MD [address] [facility] [address] [place] [address] PCP [facility] 03/02/21 Jennifer Nassar MD [address] [facility] [address] [place] [address] PCP - [facility] 05/02/23 Client Advocate Relationship Specialty Start Date End Date Jennifer Nassar MD [address] [facility] [address] [place] [address] PCP - [facility] 05/02/23 Client Advocate Relationship Specialty Start Date End Date Jennifer Nassar MD [address] [facility] [address] [place] [address] PCP - [facility] 05/02/23 Client Advocate Relationship Specialty Start Date End Date Jennifer Nassar MD [address] [facility] [address] [place] [address] PCP - [facility] 05/02/23 FOR RECORDS PERTAINING TO PATIENTS WHO [...] BE BASED ON THE PRIMARY CLINICAL RECORDS. [employer] [facility]. provides no warranty or guarantee of the accuracy or completeness of information in this document.
--- OUTSIDE RECORDS SUMMARY | 2025-07-05 06:40 | XMS_ITS | Clinical Summary ---
Author Organization [facility] Address [address] [place] [address] Care Team Providers Care Jacquard Plate Maker Name Role Phone Jennifer Alvarado MD Primary Care Provider [phone] Allergies No known active allergies Medications sertraline (Zoloft) 50 MG tabletIndication s:Mixed anxiety and depressive disorder Take 1 tablet (50 mg) by mouth Daily TAKE 1 TABLET BY MOUTH EVERY DAY 90 tablet 3 06/01/2025 Active Active Problems Problem Noted Date Diagnosed Date Family history of heart disease 06/01/2025 Class 1 obesity due to exces s calories without serious comorbidity with body mass index (BMI) of 30.0 to 30.9 in adult 06/01/2025 Mixed anxiety and depressive disorder 05/01/2023 Encounters Date Type Department Care Team Description 06/29/2025 Abstract [facility] [place] [facility] [address] [facility] [address] [place] [phone] Jennifer Alvarado MD 06/29/2025 [facility] [place] [facility] [address] [facility] [address] [place] [phone] Jennifer Alvarado MD 06/29/2025 Results Follow-Up [facility] [place] [facility] [address] [place] [address] [place] [phone] Aleja Fall PA Elevated PSA (Primary Dx) 06/29/2025 Clinisync Result Encounter [facility] External Department Unsolicited Aleja Fall PA 06/02/2025 Abstract [facility] [place] [facility] [address] [facility] [address] [place] [phone] Jennifer Alvarado MD 06/01/2025 4:30 PM EDT Office Visit [facility] [place] [facility] [address] [facility] [address] [place] [phone] Aleja Fall PA Wellness examination (Primary Dx); Screening for malignant neoplasm of colon; Class 1 obesity due to excess calories without serious comorbidity with body mass index (BMI) of 30.0 to 30.9 in adult; Mixed anxiety and depressive disorder; Screening for malignant neoplasm of prostate; Family history of heart disease 06/01/2025 Bamboo flowsheet [facility] [place] [facility] [address] [facility] [address] [place] [phone] Aleja Fall PA 06/01/2025 Travel 05/13/2025 Telephone [facility] [place] [facility] [address] [facility] [address] [place] [phone] Jennifer Alvarado MD from Last 3 Months [...] ANTIGEN SCRN Routine 06/29/2025 6:41 AM EDT ALL LIPID PROFILE (FASTING) Routine 06/29/2025 6:41 AM EDT [facility] CMP (CMP) (FOR REMOTE [facility] USE) Routine 06/29/2025 6:41 AM EDT ALL CBC WITH AUTO DIFF Routine 06/29/2025 6:41 AM EDT LAB COLOGUARD COLON CANCER SCREEN Routine 02/03/2021 from Last 3 Months or Most Recently Relevant to Health Maintenance Results * (ABNORMAL) [facility] PROSTATE SPECIFIC ANTIGEN SCRN (06/29/2025 6:41 AM EDT) PROSTATE SPECIFIC ANTIGEN SCRN 4.62(H) <=4.00 ng/mL TB 06/29/2025 6:41 AM EDT 06/29/2025 6:46 AM EDT Narrative CLINISYNC - 06/29/2025 8:46 AM EDT us Aleja PRABHAKAR CLIN[facility] Final Result [facility] TB * (ABNORMAL) [facility] CMP (CMP) (FOR REMOTE [facility] USE) (06/29/2025 6:41 AM EDT) SODIUM 141 136 - 145 mmol/L TBH POTASSIUM 3.9 3.5 - 5.1 mmol/L [facility]H CHLORIDE 106 98 - 107 mmol/L TBH CARBON DIOXIDE 26.0 21.0 - 32.0 mmol/L TBH ANION GAP 12.9 TBH GLUCOSE 98 74 - 106 mg/dL [facility] BLOOD UREA NITROGEN 19.0(H) 7.0 - 18.0 mg/dL [facility] CREATININE 1.04 0.70 - 1.30 mg/dL TBH TBH EGFR-AF BERMUDIAN >60 >=60 mL/min/1. 73m 2 TBH TBH EGFR-NON AF BERMUDIAN >60 >=60 mL/min/1. 73m 2 TBH BUN [...] CLINISYNC - 06/29/2025 7:54 AM EDT Aleja PRABHAKAR [facility] Final Result [facility] TB * (ABNORMAL) ALL LIPID PROFILE (FASTING) (06/29/2025 6:41 AM EDT) TRIGLYCERIDES 112 <=150 mg/dL TBH CHOLESTEROL 183 <=200 mg/dL TBH HDL CHOLESTEROL 35(L) 40 - 60 mg/dL TB Comment: > or =60 mg/dl - LOW CARDIOVASCULAR RISK <40 mg/dl - HIGH CARDIOVASCULAR RISK LDL CHOLESTEROL CALCULATED 126.0 mg/dL TB Comment: <100 mg/dl OPTIMAL 100-129 mg/dl NEAR OR ABOVE OPTIMAL 130-159 mg/dl BORDERLINE HIGH 160-189 mg/dl HIGH >190 mg/dl VERY HIGH VLDL CHOLESTEROL 22.4 mg/dL [facility] CHOL HDL RATIO 5.2 [facility] Comment: 3.3 - 4.4 LOW RISK 4.4 - 7.1 AVERAGE RISK 7.1 - 11.0 MODERATE RISK >11.0 HIGH RISK 06/29/2025 6:41 AM EDT 06/29/2025 6:46 AM EDT Narrative CLINISYNC - 06/29/2025 7:54 AM EDT Aleja PRABHAKAR CLINISYNC Final Result [facility] * (ABNORMAL) ALL CBC WITH AUTO DIFF (06/29/2025 6:41 AM EDT) TB WBC 6.7 4.0 - 11.0 10 3/uL TBH TB RBC 4.46(L) 4.70 - 6.10 10 6/uL TBH TB HGB 13.9(L) 14.0 - 18.0 g/dL TB TB HCT 40.6(L) 42.0 - 54.0 % TB TB MCV 91.0 80.0 - 94.0 fL TB TB MCH 31.2 25.9 - 34.0 pg TBH TB MCHC 34.2 29.9 - 35.2 g/dL TB TB RDW 12.2 11.0 - 15.0 % TBH TBH PLT 206 150 - 450 10 3/uL TB TB MPV 10.8 9.5 - 13.5 fL TB NEUTROPHILS PERCENT AUTO 62.7 43.0 - 75.0 [...] EDT Aleja PRABHAKAR CLINISYNC Final Result [facility] * Cologuard?? colon cancer screening (02/03/2021) COLOGUARD [...] (Eliud Boykin al, N Engl J Med 2014;370(14):1057-8205) The normal value (reference range) for this assay is negative. COLOGUARD RE-SCREENING RECOMMENDATION: Periodic routine colorectal cancer screening is an important part of preventive healthcare for asymptomatic persons at average risk for colorectal cancer. Following a negative Cologuard result, the [place] Cancer Society and U.S. Multi-Society Task Force screening guidelines recommend a Cologuard re-screening interval of 3 years. References: [place] Cancer Society (ACS). Colorectal cancer prevention and early detection. [place], [place]: [place] Cancer Society; [updated 2015Mar 25]. https://www.cancer.org/cancer/etqcc-huvpyp-qjctha/yyfojwlii-uvikpsota-mhvteuo/ac s-rec ommendations.html. Accessed August 01, 2018; German DK, Miguel A GUADARRAMA, Cindy OCASIO, Colorectal Cancer Screening: Recommendations for Physicians and Patients from the U.S. Multi-Society Task Force on Colorectal Cancer Screening, Am J Gastroenterology 2017; 112:9622-0858. TEST TYPE: Composite algorithmic analysis of stool [...] interval of every 3 years by the [place] Cancer Society and U.S. Multi-Society Task Force. [...] can be accessed at the following location: www.[facility].[employer]/results. Additional description of the Cologuard test process, warnings and precautions can be found at www.cologuardtest.com. Rx only. 02/03/2021 Jennifer Alvarado MD LAB MOLECULAR DIAGNOSTICS ORDERA BLES Final Result [facility] from Last 3 Months or Most Recently Relevant to Health Maintenance Insurance [facility] Care Teams Jacquard Plate Maker Relationship Specialty Start Date End Date Jennifer Alvarado MD [address] [facility] [address] [place] [address] PCP - General Family Medicine 05/02/23
--- OUTSIDE RECORDS SUMMARY | 2025-07-05 06:40 | XMS_ITS | Clinical Summary ---
Author Organization [facility] Address [address] [facility] [address] [place] [id number] Care Team Providers Care Security Compliance Specialist Name Role Phone Unavailable Primary Care Provider Unavailabl e Allergies No known active allergies Medications Sertraline 50 MG tablet TAKE 1 TABLET BY MOUTH EVERY DAY FOR 100 DAYS 05/04/2024 Active predniSONE 20 MG tablet 3 tabs daily x 3days; 2 tabs daily x 3days; 1 tab daily x 3days then 1/2 tablet daily x 3days 20 tablet 05/19/2024 Active Social History Tobacco Use Types Packs/Day Years Used Date Smoking Tobacco: Never Assessed Sex and Gender Information Value Date Recorded Sex Assigned at Not on file Legal Sex Male 12:54 PM EST Gender Identity Not on file Sexual Orientation Not on file Last Filed Vital Signs Vital Sign Reading Time Taken Comments Blood Pressure 130/82 05/18/2024 7:26 AM EDT Pulse 61 05/18/2024 7:26 AM EDT Temperature 35.9 C (96.6 F) 05/18/2024 7:26 AM EDT Respiratory Rate 16 05/18/2024 7:26 AM EDT Oxygen Saturation 96% 05/18/2024 7:26 AM EDT Inhaled Oxygen Concentration - - Weight - - Height 190.5 cm (6' 3 ) 05/18/2024 7:25 AM EDT Body Mass Index - - Plan of Treatment Health Maintenance Due Date Last Done Comments HEPATITIS C VIRUS SCREENING 1969 TETANUS 1969 HIV SCREENING DISCUSSION 1984 HEP B VACCINE (1 of 3 - 19+ 3-dose series) 1988 TDAP (ADULT) 1988 LIPID SCREENING 2009 PNEUMOCOCCAL VACCINE SERIES (1 of 1 - PCV) 2019 COLORECTAL CANCER SCREENING DISCUSSION 02/03/2022 ZOSTER (SHINGLES) VACCINE (2 of 2) 09/12/20222021 COVID-19 VACCINE ( season) 2024 PROSTATE CANCER SCREENING DISCUSSION 2024 INFLUENZA VACCINE (#1) 2025 09/18/2022, 2019 [facility]
[2025-07-06 04:07] LABS: PSA, Free 0.53 ng/mL
== END 2025-07-05 06:37 | disposition home or self-care (01) ==
LOC: LAB 06:38
PROVIDERS: PCP Family Medicine; Visit Provider Physician Assistant
DX: R97.20 Elevated prostate specific antigen [PSA] (principal)
CPT/HCPCS: 36415; 84153; 84154